=== PATIENT | female | born 1935 | race Caucasian/White ===

== ENCOUNTER → 2018-02-27 12:09 | Outpatient (CLI) | payer MEDICARE, OTHER, SELFPAY ==
--- NOTE | 2018-02-27 12:16 | RAD_ITS ---
STUDY: X-RAY - CERVICAL SPINE REASON FOR EXAM: Female, 82 years old. Neck pain. Fall. TECHNIQUE: 5 view(s) of the cervical spine were obtained. COMPARISON: None FINDINGS: Normal anterior atlantoaxial articulation. Normal odontoid process. There is reversal of the normal cervical lordosis. There is multi-level endplate spondylosis. There is multi-level degenerative disc disease with multilevel disc space narrowing. There is multi-level osseous foraminal stenosis. The soft tissue structures are unremarkable. RAD/Cerv Spine 4 or 5 Views IMPRESSION: No acute abnormality. Relatively severe multilevel degenerative changes. Electronically Signed: Oscar Redding MD at 19:02 EDT , Service support ,
== END ==
PROVIDERS: Family Provider Family Medicine; PCP Family Medicine; Visit Provider Family Medicine
DX: M54.2 Cervicalgia (principal)
CPT/HCPCS: 72050

== ENCOUNTER → 2018-03-08 14:01 | Outpatient (CLI) | payer MEDICARE, OTHER, SELFPAY ==
--- NOTE | 2018-03-08 14:04 | CT_ITS ---
CT Head or Brain W/O Contrast INDICATION: Closed head injury with concussion, fell on ice 11/2017, no LOC, c/o sharp posterior headaches. COMPARISON: None TECHNIQUE: Noncontrast axial CT examination of the brain. Radiation dose optimization applied. FINDINGS: The ventricular system is normal in size and symmetric. The cortical sulci, sylvian fissures, and basal cisterns are well seen. The wooten-white matter junction is distinct. There is no evidence of acute intracranial hemorrhage, mass effect, midline shift, or abnormal extra-axial collection. The calvarium is intact and the visualized paranasal sinuses and mastoid air cells are clear. CT/Brain/Head without Contrast IMPRESSION: No evidence of acute intracranial abnormality by noncontrast CT. at 2243 Reported and signed by: Mar Dsouza MD Electronically Signed: Mar Dsouza MD at 22:41 EDT Tel , Service support ,
== END ==
PROVIDERS: Family Provider Family Medicine; PCP Family Medicine; Visit Provider Family Medicine
DX: S06.0X9A Concussion with loss of consciousness of unspecified duration, initial encounter (principal)
CPT/HCPCS: 70450

== ENCOUNTER → 2018-04-23 14:25 | Outpatient (CLI) | payer MEDICARE, OTHER, SELFPAY ==
--- NOTE | 2018-04-23 14:25 | DT_ITS ---
This patient was seen during an EMR downtime April 23, 2018 - April 30, 2018. This patient may have a combination of paper and electronic documentation or all paper documentation. All documentation is viewable within the e-chart portion of [facility] for each patient visit.
[2018-04-29 03:28] LABS: AST(SGOT) 26 U/L (15-37); Alanine Aminotransfer ALT/SGPT 35 U/L (13-56); Anion Gap 8 (5-15); BUN 21 mg/dL (7-18); BUN/Creat Ratio 22.3 RATIO (10-20); Calcium,Total 10.3 mg/dL (8.5-10.1); Chloride 106 mmol/L (98-107); Cholesterol 170 mg/dL (200); Creatinine, Serum 0.94 mg/dL (0.55-1.02); EST Glomerular Filtration Rate 61 mL/min (>60); Est Glom Filt Rate - Afr Amer 74 mL/min (>60); Glucose 91 mg/dL (74-106); High Density Lipoprotein 58 mg/dL; Potassium 3.6 mmol/L (3.5-5.1); Sodium Level 143 mmol/L (136-145); Triglycerides 191 mg/dL; Very Low Density Lipoprotein 38 mg/dL (5-40)
== END ==
PROVIDERS: Family Provider Family Medicine; PCP Family Medicine; Visit Provider Family Medicine
DX: I10 Essential (primary) hypertension (principal); E78.5 Hyperlipidemia, unspecified
CPT/HCPCS: 36415; 80048; 80061; 84450; 84460

== ENCOUNTER → 2018-10-22 11:04 | Outpatient (CLI) | payer MEDICARE, OTHER, SELFPAY ==
[2017-04-08 16:09] VITALS: BMI 30.3
[2018-10-22 12:13] LABS: Absolute Lymphocyte Count 1.29 X10^3/ul (0.83-4.51); Absolute Neutrophil Count 2.2 X10^3/uL (2.0-7.7); Basophil# 0.02 X10^3/uL; Basophil% 0.5 % (0-1); Eosinophil# 0.16 X10^3/uL; Hematocrit 39.8 % (37-47); Hemoglobin 13.1 g/dl (12.0-15.0); Lymphocyte # 1.29 X10^3/ul (4.0); Lymphocyte % 31.9 % (19-41); Mean Corp Hgb Conc 32.9 g/gl (32-36); Mean Corpuscular Hgb 28.5 pg (27.0-32.0); Mean Corpuscular Volume 86.5 fL (81-99); Mean Platelet Vol. 10.9 fl (6.2-12.0); Monocyte# 0.33 X10^3/uL; Monocyte% 8.2 % (0-10); Neutrophil # 2.23 X10^3/uL (2.7-7.7); Neutrophil % 55.2 % (47-70); Platelet Count 175 K/mm3 (150-450); RBC Distribution Width CV 13.3 % (11.6-14.6); RBC Distribution Width SD 42.1 fl (35.1-43.9)
[2018-10-22 12:20] LABS: POSITIVE COUNT NO; POSITIVE DIFFERENTIAL NO; POSITIVE MORPHOLOGY NO
[2018-10-22 12:39] LABS: Vitamin B12 483 pg/mL (211-911)
[2018-10-22 13:18] LABS: ALB/GLOB Ratio 1.1 RATIO (0.9-2.4); AST(SGOT) 24 U/L (15-37); Alanine Aminotransfer ALT/SGPT 35 U/L (13-56); Albumin, Serum 3.9 g/dL (3.2-5.0); Alkaline Phosphatase 85 U/L (45-117); Anion Gap 8 (5-15); BUN 18 mg/dL (7-18); BUN/Creat Ratio 22.7 RATIO (10-20); Calcium,Total 10.1 mg/dL (8.5-10.1); Chloride 104 mmol/L (98-107); Cholesterol 178 mg/dL (200); Creatinine, Serum 0.79 mg/dL (0.55-1.02); EST Glomerular Filtration Rate 74 mL/min (>60); Est Glom Filt Rate - Afr Amer 89 mL/min (>60); Globulin 3.7 g/dL (2.2-4.2); Glucose 104 mg/dL (74-106); High Density Lipoprotein 57 mg/dL; Potassium 3.8 mmol/L (3.5-5.1); Protein, Total 7.6 g/dL (6.4-8.2); Sodium Level 139 mmol/L (136-145); Thyroid Stim Hormone (TSH) 2.96 uIU/mL (0.358-3.74); Triglycerides 140 mg/dL; Very Low Density Lipoprotein 28 mg/dL (5-40)
--- OUTSIDE RECORDS SUMMARY | 2018-12-15 16:47 | XMS RPT_ITS ---
:1935 Author Organization OH[facility] Care Team Providers Name Role Phone Angelita Roman Attending Unavailable Jolliff, Angelita Primary Care Unavailable Jolliff, Angelita Attending Unavailable Jolliff, Angelita Referring Unavailable Jolliff, Angelita Primary Care Unavailable Jolliff, Angelita Attending Unavailable Jolliff, Angelita Primary Care Unavailable Jolliff, Angelita Attending Unavailable Jolliff, Angelita Primary Care Unavailable PROBLEMS PROBLEMS DATE TYPE CONDITION / CODE ATTENDING STATUS SOURCE 05/16/2018 Unknown I10 - Essential Angelita Roman Active [place] (primary) Community hypertension / Hospital I10(ICD-10) Repository 03/08/2018 Unknown S06.0X9A - Angelita Roman Active [place] Concussion with Community loss of Hospital consciousness of Repository unspecified duration, initial encounter / S06.0X9A(ICD-10) 02/27/2018 Unknown M54.2 - Cervicalgia Angelita Roman Active [place] / M54.2(ICD-10) [facility] Hospital Repository PROCEDURES PROCEDURES No Procedure Records FoundRESULTS RESULTS CBC W/DIFF, AUTOMATED Collected: 10/22/2018 Status: F Source: [place] 11:06 AM [facility] REPOSITORY TYPE CODE TESTS RESULT OUT OF RANGE REFERENCE UNITS LAB L100.1000 4.4-11.0 K/mm3 Low WBC 4.0 LAB L100.1200 4.2-5.4 M/mm3 Normal RBC 4.60 LAB L100.1300 12.0-15.0 g/dl Normal HGB 13.1 LAB L100.1400 37-47 % Normal HCT 39.8 LAB L100.1500 81-99 fL Normal MCV 86.5 LAB L100.1600 27.0-32.0 pg Normal MCH 28.5 LAB L100.1700 32-36 g/gl Normal MCHC 32.9 LAB L100.1810 11.6-14.6 % Normal RDW CV 13.3 LAB L100.1820 35.1-43.9 fl Normal RDW SD 42.1 LAB L100.1900 150-450 K/mm3 Normal PLT 175 LAB L100.2000 6.2-12.0 fl Normal MPV 10.9 LAB L100.2100 47-70 % Normal NEUT% 55.2 LAB L100.2200 19-41 % Normal LY% 31.9 LAB L100.2300 0-10 % Normal MONO% 8.2 LAB L100.2400 0-5 % Normal EO% 4.0 LAB L100.2500 0-1 % Normal BASO% 0.5 LAB L100.2550 0.0-0.9 % Normal IM GRAN % 0.200 Result Comment: IG% - Immature Granulocytes (promyelocytes, myelocytes and metamyelocytes) > 1% indicates that a LEFT SHIFT is Present. LAB L100.2620 2.0-7.7 X10 3/uL Normal Absolute Neut 2.2 LAB L100.2720 0.83-4.51 X10 3/ul Normal Absolute Lymph 1.29 Performed By: #### L100.0100 #### [facility] [address] [place], [place], [address] VITAMIN B12 Collected: 10/22/2018 Status: F Source: [place] 11:06 AM [facility] REPOSITORY TYPE CODE TESTS RESULT OUT OF RANGE REFERENCE UNITS LAB L503.0105 211-911 pg/mL Normal Vitamin B12 483 Performed By: #### L503.0105 #### [facility] [address] [place], [place], [address] COMPREHENSIVE METABOLIC Collected: 10/22/2018 Status: F Source: [place] MICHEL 11:06 AM [facility] REPOSITORY Order Comment: Is Patient Taking Vitamins or Folic Acid Supplements? N TYPE CODE TESTS RESULT OUT OF RANGE REFERENCE UNITS LAB L501.0100 74-106 mg/dL Normal GLU 104 Result Comment: Fasting Glucose result from 100 to 125 mg/dL suggests IMPAIRED HOMEOSTASIS per A.D.A. criteria. Please note revised GLUCOSE reference range effective 2017. LAB L501.1000 7-18 mg/dL Normal BUN 18 LAB L501.1100 0.55-1.02 mg/dL Normal CREAT,SERUM 0.79 Result Comment: The validity of the calculated GFR AND GFRAA in patients over 70 years has not been determined. Clinical correlation is essential. LAB L501.1110 >60 mL/min Normal EST GFR 74 Result Comment: Non- GFR Calc LAB L501.1115 >60 mL/min Normal EST GFR - AA 89 Result Comment: GFR Calc LAB L501.1300 10-20 RATIO High BUN/CRE 22.7 LAB L501.1500 6.4-8.2 g/dL T Normal PROT 7.6 LAB L501.1800 3.2-5.0 g/dL Normal ALB 3.9 LAB L501.1950 2.2-4.2 g/dL Normal GLOB 3.7 LAB L501.2000 0.9-2.4 RATIO Normal A/G 1.1 LAB L501.2200 8.5-10.1 mg/dL CA Normal 10.1 LAB L501.4100 15-37 U/L Normal AST 24 LAB L501.4305 45-117 U/L Normal ALK P 85 LAB L501.4405 13-56 U/L Normal ALT 35 LAB L501.4600 0.20-1.00 mg/dL T Normal BILI 0.90 LAB L501.5300 136-145 mmol/L NA Normal 139 LAB L501.5600 3.5-5.1 mmol/L K Normal 3.8 LAB L501.5900 98-107 mmol/L CL Normal 104 LAB L501.6100 21.0-32.0 mmol/L Normal CO2 27.0 LAB L501.6200 5-15 Normal GAP 8 Performed By: #### L500.4050, L500.4100, L501.9520, L506.0250 #### [facility] [address] [place], [address] LIPID PROFILE Collected: 10/22/2018 Status: F Source: [place] 11:06 AM [facility] REPOSITORY Order Comment: Is Patient Taking Vitamins or Folic Acid Supplements? N TYPE CODE TESTS RESULT OUT OF RANGE REFERENCE UNITS LAB L501.4900 200 mg/dL Normal CHOL 178 Result Comment: <200 mg/dL Desirable 200-240 mg/dL Borderline >240 mg/dL High Risk LAB L501.5000 mg/dL Normal TRIG 140 Result Comment: The drugs N-Acetylcysteine and Metamizole may falsely depress this assay. Serum Triglycerides Reference Interval Normal <150 mg/dL Borderline high 150 - 199 mg/dL High 200 - 499 mg/dL Very High > or = 500 mg/dL LAB L501.6400 mg/dL Normal HDL 57 Result Comment: The drugs N-Acetylcysteine and Metamizole may falsely depress this assay. Reference Range HDL <40 mg/dL Low HDL Cholesterol HDL >or= 60 mg/dL High HDL Cholesterol LAB L501.6500 0-130 mg/dL Normal LDL 93 LAB L501.6600 5-40 mg/dL Normal VLDL 28 Performed By: #### L500.4050, L500.4100, L501.9520, L506.0250 #### [facility] [address] [place], [address] THYROID STIM HORMONE Collected: 10/22/2018 Status: F Source: [place] (TSH) 11:06 AM [facility] REPOSITORY Order Comment: Is Patient Taking Vitamins or Folic Acid Supplements? N TYPE CODE TESTS RESULT OUT OF RANGE REFERENCE UNITS LAB L501.9520 0.358-3.74 uIU/mL Normal TSH 2.96 Performed By: #### L500.4050, L500.4100, L501.9520, L506.0250 #### [facility] [address] [place], [address] FOLATES, (FOLIC ACID) Collected: 10/22/2018 Status: F Source: [place] 11:06 AM [facility] REPOSITORY Order Comment: Is Patient Taking Vitamins or Folic Acid Supplements? N TYPE CODE TESTS RESULT OUT OF REFERENCE UNITS RANGE LAB L506.0250 3.1-55.4 ng/mL High FOLATES 61.60 Performed By: #### L500.4050, L500.4100, L501.9520, L506.0250 #### [facility] [address] [place], [address] DOWNTIME REPORT Observed: 05/10/2018 Status: F Source: [place] 1:35 PM [facility] REPOSITORY [facility] Medical Records Department [address] [place] [address] Downtime Report MR#: [id number] Acct: [id number] Name: CÉSAR PRESCOTT Rep #: [id number] : 1935 82 From: Anthony Khan PCP: Angelita Roman MD Status: REG CLI This patient was seen during an EMR downtime April 23, 2018 - April 30, 2018. This patient may have a combination of paper and electronic documentation or all paper documentation. All documentation is viewable within the e-chart portion of [employer] for each patient visit. BASIC METABOLIC Collected: 04/23/2018 Status: F Source: [place] PROFILE (BMP) 2:25 PM [facility] REPOSITORY Order Comment: RESULT(S) PREVIOUSLY REPORTED ON MANUAL REQUISITION DURING DOWNTIME. TYPE CODE TESTS RESULT OUT OF RANGE REFERENCE UNITS LAB L501.0100 74-106 mg/dL Normal GLU 91 Result Comment: Please note revised GLUCOSE reference range effective 2017. LAB L501.1000 7-18 mg/dL High BUN 21 LAB L501.1100 0.55-1.02 mg/dL Normal CREAT,SERUM 0.94 Result Comment: The validity of the calculated GFR AND GFRAA in patients over 70 years has not been determined. Clinical correlation is essential. LAB L501.1110 >60 mL/min Normal EST GFR 61 LAB L501.1115 >60 mL/min Normal EST GFR - AA 74 LAB L501.1300 10-20 RATIO High BUN/CRE 22.3 LAB L501.2200 8.5-10.1 mg/dL High CA 10.3 LAB L501.5300 136-145 mmol/L Normal NA 143 LAB L501.5600 3.5-5.1 mmol/L Normal K 3.6 LAB L501.5900 98-107 mmol/L Normal CL 106 LAB L501.6100 21.0-32.0 mmol/L Normal CO2 29.0 LAB L501.6200 5-15 Normal GAP 8 Performed By: #### L500.2500, L500.4100, L501.4100, L501.4405 #### [facility] [address] [place], [place], [address] LIPID PROFILE Collected: 04/23/2018 Status: F Source: [place] 2:25 PM [facility] REPOSITORY Order Comment: RESULT(S) PREVIOUSLY REPORTED ON MANUAL REQUISITION DURING DOWNTIME. TYPE CODE TESTS RESULT OUT OF RANGE REFERENCE UNITS LAB L501.4900 200 mg/dL Normal CHOL 170 Result Comment: <200 mg/dL Desirable 200-240 mg/dL Borderline >240 mg/dL High Risk LAB L501.5000 mg/dL Normal TRIG 191 Result Comment: The drugs N-Acetylcysteine and Metamizole may falsely depress this assay. Serum Triglycerides Reference Interval Normal <150 mg/dL Borderline high 150 - 199 mg/dL High 200 - 499 mg/dL Very High > or = 500 mg/dL LAB L501.6400 mg/dL Normal HDL 58 Result Comment: The drugs N-Acetylcysteine and Metamizole may falsely depress this assay. Reference Range HDL <40 mg/dL Low HDL Cholesterol HDL >or= 60 mg/dL High HDL Cholesterol LAB L501.6500 0-130 mg/dL Normal LDL 74 LAB L501.6600 5-40 mg/dL Normal VLDL 38 Performed By: #### L500.2500, L500.4100, L501.4100, L501.4405 #### [facility] [address] [place], [place], [address] AST(SGOT) Collected: 04/23/2018 Status: F Source: [place] 2:25 PM [facility] REPOSITORY Order Comment: RESULT(S) PREVIOUSLY REPORTED ON MANUAL REQUISITION DURING DOWNTIME. TYPE CODE TESTS RESULT OUT OF RANGE REFERENCE UNITS LAB L501.4100 15-37 U/L Normal AST 26 Performed By: #### L500.2500, L500.4100, L501.4100, L501.4405 #### [facility] [address] [place], [address] ALANINE AMINOTRANSFERAS Collected: 04/23/2018 Status: F Source: [place] (SGPT) 2:25 PM [facility] REPOSITORY Order Comment: RESULT(S) PREVIOUSLY REPORTED ON MANUAL REQUISITION DURING DOWNTIME. TYPE CODE TESTS RESULT OUT OF RANGE REFERENCE UNITS LAB L501.4405 13-56 U/L Normal ALT 35 Performed By: #### L500.2500, L500.4100, L501.4100, L501.4405 #### [facility] [address] [place], [address] BRAIN/HEAD WITHOUT Observed: 03/08/2018 Status: F Source: [place] CONTRAST 2:04 PM [facility] REPOSITORY [facility] Imaging Services [address] [place] [address] Brain/Head without Contrast MR#: [id number] Acct: [id number] Name: CÉSAR PRESCOTT Rep #: [id number] : 1935 F 82 From: Mar Dsouza MD PCP: Angelita Roman MD Status: REG CLI Study: Brain/Head without Contrast Date of Exam: 03/08/18 Exam# [id number] Ordering Dr: Angelita Roman MD CT Head or Brain W/O Contrast INDICATION: Closed head injury with concussion, fell on ice 11/2017, no LOC, c/o sharp posterior headaches. COMPARISON: None TECHNIQUE: Noncontrast axial CT examination of the brain. Radiation dose optimization applied. FINDINGS: The ventricular system is normal in size and symmetric. The cortical sulci, sylvian fissures, and basal cisterns are well seen. The wooten- white matter junction is distinct. There is no evidence of acute intracranial hemorrhage, mass effect, midline shift, or abnormal extra- axial collection. The calvarium is intact and the visualized paranasal sinuses and mastoid air cells are clear. CT/Brain/Head without Contrast IMPRESSION: No evidence of acute intracranial abnormality by noncontrast CT. at 2243 Reported and signed by: Mar Dsouza MD Electronically Signed: Mar Dsouza MD at 22:41 EDT Tel , Service support , CC: Angelita Roman MD Manager Consumer: Signed CERV SPINE 4 OR 5 Observed: 02/27/2018 Status: F Source: [place] VIEWS 12:16 PM [facility] REPOSITORY [facility] Imaging Services [address] [place] [address] Cerv Spine 4 or 5 Views MR#: [id number] Acct: [id number] Name: CÉSAR PRESCOTT Rep #: [id number] : 1935 F 82 From: Oscar Redding MD PCP: Angelita Roman MD Status: REG CLI Study: Cerv Spine 4 or 5 Views Date of Exam: 02/27/18 Exam# [id number] Ordering Dr: Angelita Roman MD STUDY: X-RAY - CERVICAL SPINE REASON FOR EXAM: Female, 82 years old. Neck pain. Fall. TECHNIQUE: 5 view(s) of the cervical spine were obtained. COMPARISON: None FINDINGS: Normal anterior atlantoaxial articulation. Normal odontoid process. There is reversal of the normal cervical lordosis. There is multi-level endplate spondylosis. There is multi-level degenerative disc disease with multilevel disc space narrowing. There is multi-level osseous foraminal stenosis. The soft tissue structures are unremarkable. RAD/Cerv Spine 4 or 5 Views IMPRESSION: No acute abnormality. Relatively severe multilevel degenerative changes. Electronically Signed: Oscar Redding MD at 19:02 EDT , Service support , CC: Angelita Roman MD Manager Consumer: Signed ALLERGIES ALLERGIES DATE TYPE / CODE NAME / CODE REACTION SEVERITY SOURCE 04/08/2017 Drug Sulfa Rash Unknown [place] [facility] Allergy/4160 (Sulfonamide Hospital [address](SNOMED Antibiotics)/ Repository CT) [id number](RX NORM) ENCOUNTERS ENCOUNTERS ADMIT/DISCHARGE ACCOUNT ADMITTING ENCOUNTER LOCATION SOURCE NUMBER CLASS 10/22/2018 [id number] Ambulatory [place] [facility] ing:MFPLAB Repository 04/23/2018 [id number] Ambulatory [place] [facility] ing:MFPLAB Repository 03/08/2018 [id number] Amb[place] [facility] ing:CT Repository 02/27/2018 [id number] [place] [address] [place] [address] ing:MTRAD Repository PAYERS PAYERS ENCOUNTER GUARANTOR PAYER SUBSCRIBER SOURCE 10/22/2018 César J Primary César J [place] [id number] Insurance:MEDICARE AlcornDOB: [facility] PART A BPolicy Number: [id number] [id number] Repository [address]Jpj: 330) Date:2018-10-22 [phone] () 10/22/2018 Secondary César J [place] Insurance:HUMANA AlcornDOB: [facility] [id number] Hospital Number: Repository [id number] Date:[id number] [address]CZ: 10/22/2018 Tertiary NOT GIVENUNK [place] Insurance:SELF PAY [facility] Number: Effective Repository Date:2018-10-22 04/23/2018 César J Primary César J [place] [id number] Insurance:MEDICARE AlcornDOB: [facility] PART A olicy Number: [id number], [place] [id number] Repository [address]Wkv: [phone]) Date:2018-04-23 [phone] () 04/23/2018 Secondary César J [place] Insurance:HUMANA AlcornDOB: [facility] [id number] Hospital Number: Repository [id number] Date:[id number] [address] [place] [id number]: 04/23/2018 Tertiary NOT GIVENUNK [place] Insurance:SELF PAY [facility] Effective Repository Date:2018-04-23 03/08/2018 César J Primary César J [place] [id number] Insurance:MEDICARE AlcornDOB: [facility] [place] PART A BPolicy Number: [id number], [place] [id number] Repository [address]Qej: (172) Date:2018-03-01 [phone] () 03/08/2018 Secondary César J [place] Insurance:HUMANA AlcornDOB: [facility] [id number] Hospital Number: Repository [id number] Date:[id number] [address] [address]IG: 03/08/2018 Tertiary NOT GIVENUNK [place] Insurance:SELF PAY [facility] Hospital Number: Effective Repository Date:2018-03-01 02/27/2018 César J Primary César J [place] [id number] Insurance:MEDICARE AlcornDOB: [facility] [place] PART A BPolicy Number: [id number], [place] [id number] Repository [address]Unf: ([phone]) Date:2018-02-27 [phone] () 02/27/2018 Secondary César J [place] Insurance:HUMANA AlcornDOB: [facility] [id number] Hospital Number: Repository [id number] Date:[id number] [address] [place] [id number]: 02/27/2018 Tertiary NOT GIVENUNK [place] Insurance:SELF PAY [facility] Hospital Number: Effective Repository Date:2018-02-27
== END ==
PROVIDERS: Family Provider Family Medicine; PCP Family Medicine; Visit Provider Family Medicine
DX: I10 Essential (primary) hypertension (principal); E78.5 Hyperlipidemia, unspecified; R20.2 Paresthesia of skin
CPT/HCPCS: 36415; 80053; 80061; 82607; 82746; 84443; 85025

== ENCOUNTER → 2019-03-28 12:27 | Outpatient (CLI) | payer MEDICARE, OTHER, SELFPAY ==
[2019-03-28 11:11] VITALS: BMI 31.6
--- NOTE | 2019-03-28 12:35 | RAD_ITS ---
STUDY: X-RAY CHEST REASON FOR EXAM: Female, 83 years old. Shortness of breath, dyspnea, abnormal EKG. TECHNIQUE: PA and lateral chest COMPARISON: None. FINDINGS: The lungs are clear and expanded. Normal cardiomediastinal silhouette, krystian and pleural margins. No acute osseous or upper abdominal process. Mild scoliosis. Osteopenia. RAD/Chest PA and Lateral IMPRESSION: No acute cardiopulmonary process. Electronically Signed: Jacob Valentine MD at 16:10 EDT Tel , Service support ,
== END ==
PROVIDERS: Family Provider Family Medicine; PCP Family Medicine; Referring Provider Internal Medicine Cardiovascular Disease; Visit Provider Internal Medicine Cardiovascular Disease
DX: R06.09 Other forms of dyspnea (principal); R94.31 Abnormal electrocardiogram [ECG] [EKG]
CPT/HCPCS: 71046

== ENCOUNTER → 2019-04-30 05:55 | Outpatient (CLI) | payer MEDICARE, OTHER, SELFPAY ==
[2019-03-28 11:11] VITALS: BMI 31.6
--- NOTE | 2019-04-30 06:10 | ECHOD_ITS ---
Reason For Study: DYSPNEA/SOB Procedure This was a 2D Doppler, Color Flow transthoracic echocardiogram. The study was technically difficult. Exam performed in department. Left Ventricle Normal LV size. Left ventricular systolic function is normal. The estimated ejection fraction is 65 %. No evidence for diastolic dysfunction. No regional wall motion abnormalities noted. Right Ventricle Normal RV size. Normal systolic function. Atria Normal left atrium. Normal right atrium. No doppler evidence for ASD. Mitral Valve There is no mitral annular calcification. Normal mitral valve. Trivial mitral valve insufficiency. Tricuspid Valve Normal tricuspid valve. Mild eccentric tricuspid valve insufficiency. Right ventricular systolic pressure estimated to be 23 mmHg. Aortic Valve Trisinus/trileaflet aortic valve. Mild diffuse aortic valve thickening. Mild focal aortic valve calcification. Aortic sclerosis, no stenosis. Pulmonic Valve The pulmonic valve is not well visualized. Trivial pulmonic valve insufficiency. Great Vessels Normal sized aortic root. Pericardium/Pleural No pericardial effusion. MMode/2D Measurements & Calculations LVIDd: 4.8 cm IVSd: 0.96 cm LVOT diam: 2.0 cm LVIDs: 2.8 cm LVPWd: 0.95 cm LVOT area: 3.0 cm2 RVDd: 3.2 cm FS: 41.5 % Ao root diam: 3.2 cm LAV(MOD-bp): 49.2 ml Aortic Valve Planimetry: 2.3 cm2 LAV(MOD-bp) Indexed: 27.5 ml/m2 LAV(MOD-sp2): 47.5 ml LAV(MOD-sp4): 47.7 ml LA dimension(2D): 3.4 cm LA A4 area: 17.2 cm2 RA A4 area: 14.7 cm2 Time Measurements MV dec time: 0.20 sec Doppler Measurements & Calculations MV E max sherwin: 81.8 cm/sec Lat Peak E' Sherwin: 7.3 cm/sec Med Peak E' Sherwin: 6.4 cm/sec MV A max sherwin: 95.9 cm/sec E/E' lat: 11.2 E/E' med: 12.8 MV E/A: 0.85 Ao V2 max: 138.8 cm/sec LV V1 max: 100.1 cm/sec SV(LVOT): 75.9 ml Ao max P.7 mmHg LV V1 max P.0 mmHg Ao V2 mean: 89.0 cm/sec LV V1 mean P.0 mmHg Ao mean P.6 mmHg LV V1 mean: 66.1 cm/sec Ao V2 VTI: 31.6 cm LV V1 VTI: 24.9 cm SUKHDEEP(I,D): 2.4 cm2 SUKHDEEP(V,D): 2.2 cm2 PA V2 max: 85.4 cm/sec PI end-d sherwin: 85.8 cm/sec TR max sherwin: 223.6 cm/sec TR max P.0 mmHg Interpretation Summary The study was technically difficult. Left ventricular systolic function is normal. The estimated ejection fraction is 65 %. Trivial mitral valve insufficiency. Mild eccentric tricuspid valve insufficiency. Aortic sclerosis, no stenosis. Trivial pulmonic valve insufficiency. Right ventricular systolic pressure estimated to be 23 mmHg. No evidence for diastolic dysfunction. Ordering Physician: Magdiel Maher Referring Physician: Angelita Roman Performed By: Maty Dos Santos RDCS, RVT
--- NOTE | 2019-04-30 09:26 | STRESSREP_ITS ---
Stress Test Report Date: 04-30-19 Procedure: Exercise tolerance test/imaging study Indications: Shortness of breath/dyspnea on exertion Consent: Per the patient Procedure: The patient exercised on a Cesar protocol for 6 minutes and 30 seconds completing Stage II and 30 seconds of Stage III achieving a peak heart rate of 133 bpm (97 % predicted maximal heart rate) with a peak blood pressure 152/76 mmHg and a peak MET capacity of 7 METs. The baseline ECG demonstrated on his bradycardia; right bundle branch block pattern; nonspecific ST/T wave abnormality. The peak exercise ECG demonstrated somatic/motion artifact with no obvious ECG changes and in the early recovery ECG demonstrated continued right bundle branch block pattern with nonspecific ST and T wave changes that appeared more prominent compared with baseline with respect to ST segment depression There were occasional PACs during exercise and recovery. The functional capacity was considered good. There was [no complaint of chest discomfort during exercise or recovery]. The examination was discontinued secondary to fatigue. Impression: 1. Technically adequate (percent predicted maximal heart rate greater than 85%) exercise tolerance test 2. Peak exercise ECG with somatic/motion artifact with no obvious ECG changes and in the early recovery ECG demonstrated continued right bundle branch pattern with nonspecific ST and T wave changes that appeared more prominent compared with baseline with respect to ST segment depression 3. There were occasional PACs during exercise and recovery 4. Nuclear images pending Myocardial perfusion imaging study: Technique: The patient was injected with 11.5 mCi of technetium 99m Cardiolite and subsequently rest SPECT Cardiolite nuclear imaging was obtained in the horizontal long, vertical long, and short axis views. The patient exercised on a Cesar protocol for 6 minutes and 30 seconds completing Stage II and 30 seconds of Stage III achieving a peak heart rate of 133 bpm (97 % predicted maximal heart rate) with a peak blood pressure 152/76 mmHg and a peak MET capacity of 7 METs. The patient was injected with 34.2 mCi of technetium 99m Cardiolite and subsequently stress SPECT Cardiolite nuclear imaging was obtained in the horizontal long, vertical long, and short axis views. A gated Cardiolite study at peak stress was obtained. Interpretation: Rest and stress SPECT Cardiolite nuclear imaging status post realignment, normalization, and attenuation correction, demonstrates [the appearance of relative uniform tracer uptake and myocardial perfusion appearing within normal limits]. [There is end systolic thickening and brightening]. The gated Cardiolite study demonstrates [myocardial thickening and inward wall motion]. The reported LVEF is 87 %. Impression: 1. Rest and stress SPECT Cardiolite nuclear imaging demonstrate [relative uniform tracer uptake and myocardial perfusion appearing within normal limits]. 2. The gated Cardiolite study reports an LVEF of 87 %. This note was generated with [employer] software. It may contain incorrect words, spelling, and punctuation that were not noted in checking the note before signing.
== END ==
PROVIDERS: Family Provider Family Medicine; PCP Family Medicine; Referring Provider Internal Medicine Cardiovascular Disease; Visit Provider Internal Medicine Cardiovascular Disease
DX: R06.09 Other forms of dyspnea (principal); R94.31 Abnormal electrocardiogram [ECG] [EKG]
CPT/HCPCS: 78452; 93017; 93306; A9500; A4216

== ENCOUNTER → 2019-05-10 14:01 | Outpatient (CLI) | payer MEDICARE, OTHER, SELFPAY ==
[2019-05-08 10:42] VITALS: BMI 31.4
[2019-05-10 16:25] LABS: Hematocrit 40.3 % (37-47); Hemoglobin 13.4 g/dl (12.0-15.0); Mean Corp Hgb Conc 33.3 g/gl (32-36); Mean Corpuscular Hgb 27.9 pg (27.0-32.0); Mean Corpuscular Volume 83.8 fL (81-99); Mean Platelet Vol. 11.4 fl (6.2-12.0); Platelet Count 188 K/mm3 (150-450); RBC Distribution Width SD 39.5 fl (35.1-43.9); Red Blood Count 4.81 M/mm3 (4.2-5.4); White Blood Count 5.2 K/mm3 (4.4-11.0)
[2019-05-10 16:29] LABS: Scan Indicated on CBC? Y/N NO
[2019-05-10 16:33] LABS: Prothrombin Time (Protime)PT. 13.4 SECONDS (11.7-14.9)
[2019-05-10 16:34] LABS: Partial Thromboplast Time 27.1 Seconds (24.1-36.2)
[2019-05-10 16:48] LABS: Anion Gap 5 (5-15); BUN 23 mg/dL (7-18); BUN/Creat Ratio 26.5 RATIO (10-20); Calcium,Total 10.3 mg/dL (8.5-10.1); Chloride 104 mmol/L (98-107); Creatinine, Serum 0.87 mg/dL (0.55-1.02); EST Glomerular Filtration Rate 66 mL/min (>60); Est Glom Filt Rate - Afr Amer 80 mL/min (>60); Glucose 101 mg/dL (74-106); Potassium 3.7 mmol/L (3.5-5.1); Sodium Level 137 mmol/L (136-145)
== END ==
PROVIDERS: Family Provider Family Medicine; PCP Family Medicine; Referring Provider Internal Medicine Cardiovascular Disease; Visit Provider Internal Medicine Cardiovascular Disease
DX: R94.39 Abnormal result of other cardiovascular function study (principal); R06.09 Other forms of dyspnea; I10 Essential (primary) hypertension
CPT/HCPCS: 36415; 80048; 85027; 85610; 85730

== ENCOUNTER 2019-05-14 07:55 | Day surgery (SDC) | payer MEDICARE, OTHER, SELFPAY ==
[2019-03-28 11:11] VITALS: BMI 31.6
[2019-05-08 10:42] VITALS: BMI 31.4
[2019-05-13 09:12] VITALS: BMI 31.6
[2019-05-14] VITALS (24 sets, daily range): BP systolic 94–138; BP diastolic 33–79; PULSE 51–63; RESP 14–21; TEMP 36.4–36.7; O2SAT 92–99; BMI 27.6
--- NOTE | 2019-05-14 07:42 | PCM.HP.BLA ---
Problem List (1) Dyspnea on exertion Status: Acute (2) Abnormal stress test Status: Acute (3) Mixed hyperlipidemia Status: Chronic (4) Essential hypertension Status: Chronic (5) Secondary pulmonary hypertension Status: Chronic History and Physical Date of Admission: 05/14/19 History of Present Illness Surgical H&P: Yes Details: This is a 83-year-old white female who presents today for outpatient cardiovascular follow up based on concerns of shortness of breath/dyspnea. As you recall, she has undergone previous evaluation in the past in [place], [place]. It appears, based upon some information obtained, that in March 2013 she underwent an exercise tolerance test/imaging study. According to a letter from her dipper operator at that time it was considered to have no significant findings or suggestion of significant blockages and thus she did not require further evaluation or care. However she states there were concerns at that time about her heartbeats and she was evaluated by electrophysiology. She states she wore a heart monitor. She did not require invasive evaluation. She was placed on medical therapy with her beta-anjum. It also appears in June 2017 she had a transthoracic echocardiogram performed at [facility]. At that time her left ventricle was considered normal with an LVEF of 60% with findings of mild TR. She had decreased diastolic compliance. She has been undergoing evaluation by her land surveyor assistant. She states he is not convinced her shortness of breath is pulmonary related. Thus he requested cardiac evaluation. She states she does get short of breath with exertional activity such as vacuuming the floor or going up an incline. She denies orthopnea or PND. She has had no significant peripheral pitting edema. There has been no associated chest discomfort other than the sensation she gets when she is short of breath and dyspneic. She has had no near syncope or syncope. She states she rarely notes her heart beats . She did have an ECG in the office today. She was noted to be in sinus bradycardia. She has an underlying right bundle branch block pattern. Since her original visit she has also undergone further evaluation with a transthoracic echocardiogram and an exercise tolerance test/imaging study. The results are as noted below. 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: No Accompanied by: Self Allergies Sulfa (Sulfonamide Antibiotics) Allergy (Verified 05/13/19 08:57) Rash Medications Atorvastatin Calcium [Lipitor] 20 mg PO QHS 04/08/17 [History Confirmed 05/13/19] Metoprolol(XL)Succ [Toprol Xl (Beta Anjum)] 25 mg PO DAILY 04/08/17 [History Confirmed 05/13/19] cholecalciferol (vitamin D3) 1,000 unit capsule 1,000 unit PO DAILY 03/22/19 [History Confirmed 05/13/19] clobetasol 0.05 % topical gel 1 applic TOPICAL BID PRN 03/22/19 [History Confirmed 05/13/19] coenzyme Q10 100 mg capsule 100 mg PO DAILY 03/22/19 [History Confirmed 05/13/19] lisinopril 20 mg-hydrochlorothiazide 25 mg tablet 0.5 tab PO DAILY tab 03/28/19 [History Confirmed 05/13/19] multivitamin tablet 1 tab PO DAILY 03/28/19 [History Confirmed 05/13/19] aspirin 81 mg tablet,delayed release 81 mg PO DAILY #1 tab 05/08/19 [Rx Confirmed 05/13/19] clopidogrel 75 mg tablet 75 mg PO DAILY #30 tab 05/08/19 [Rx Confirmed 05/13/19] [facility] Medical History Abnormal stress test (Acute) Dyspnea on exertion (Acute) Mixed hyperlipidemia (Chronic) Essential hypertension (Chronic) Secondary pulmonary hypertension (Chronic) RACHID (obstructive sleep apnea) (Chronic) Surgical History History of cataract surgery (Resolved) History of hip replacement (Resolved) History of knee replacement (Resolved) History of shoulder surgery (Resolved) Family History Father Heart disease Grandfather Heart disease Grandmother CVA (cerebral vascular accident) Social History (Updated 05/13/19 @ 11:24 by Magdiel Maher MD) Smoking Status: Never smoker alcohol intake: never substance use type: does not use caffeine: Yes Type: coffee Number of servings: 1 ROS Const Const: Negative for fatigue, weakness, frequent falls, excessive sweating, weight gain or weight loss Eyes Eyes: Negative for transient loss of vision, blurry vision or change in vision ENT ENT: Positive for balance problems (slight unsteadiness); negative for dizziness Cardio Chest Pain: No Palpitations: No Edema: Bilateral (slight intermittant) Muscle aches with walking: None Resp Respiratory: Positive for SOB with activity and SOB at rest (occasional) GI GI: Negative vomiting or vomiting blood/hematemesis : Negative for hematuria Musc Musc: Positive for muscle aches/ myalgia (bilat tingling from knee down and neuropathy to toes) and balance problems (slight unsteadiness); negative for muscle weakness or joint pain Skin Skin: Negative non-healing lesions or rash Neuro Neuro: Negative for dizziness, lightheadedness, orthostatic symptoms, frequent falls, weakness or blurry vision Charles Hematologic/Lymphatic: Negative for easy bleeding Endo Endo: Negative for fatigue or excessive sweating Psych Psych: Negative for anxiety or depression Allergy Allergy/Immunology: Negative for hives, Negative for rash Cardiology Exam Const Appearance: cooperative, healthy appearing, comfortable, no acute distress, well developed and well groomed Nutritional Appearance: overweight Orientation: alert, awake and oriented x3 Head Head: normal to inspection and normocephalic Ears: hearing grossly normal bilaterally Nose: external nose normal Face and Sinus: face symmetric Mouth: oral mucosae normal Teeth and gingiva: fair dentition Eyes Eyelids: eyelids normal Conjunctivae: conjunctivae normal Pupils: PERRL EOM: EOM intact bilaterally Neck Neck: normal visual inspection and full ROM Carotids: normal carotid upstroke Chest Chest inspection: normal inspection of the chest and symmetric chest movement Auscultation: Bilateral: Clear to Auscultation Cardio Palpation: normal PMI Rate: regular rate Rhythm: regular rhythm Heart sounds: S1 normal and S2 normal GI GI: normal to inspection, soft and bowel sounds present Neuro General: alert, awake, oriented x3, gait normal and moves all extremities Skin Skin: no rashes or lesions noted Extremities Pulses: Normal: Right Radial Pulse, Left Radial Pulse Lower Extremity Edema: None: Bilateral Psych Psychological: normal affect Assessment & Plan 1. Abnormal stress test R94.39 Plan At the present time she will continue medical management. This will include the addition of aspirin 81 mg p.o. daily and Plavix 75 mg p.o. daily. Based upon her concerns and her findings she will be asked to go undergo further definitive cardiovascular evaluation with diagnostic cardiac catheterization. The procedure and risks were discussed with her. She was agreeable to this approach. Orders Orders: 12 Lead EKG performed by [facility] 05/08/19 2. Dyspnea on exertion R06.09 Plan Again she does have dyspnea on exertion. The question is whether this is cardiovascular related or pulmonary related or combination of both barring other unknown diagnoses. Thus she will continue evaluation care as noted above. 3. Secondary pulmonary hypertension Plan She has a history of secondary pulmonary hypertension. Based upon her most recent transthoracic echocardiogram her estimated RV systolic pressure was within normal range. This can be further assessed as deemed appropriate. 4. Mixed hyperlipidemia E78.2 Plan She will continue risk factor evaluation care. 5. Essential hypertension I10 Plan She will continue anti-hypertensive therapy as deemed appropriate. Orders Orders: 12 Lead EKG performed by [facility] 05/08/19 Plan Detail Other Medications New: aspirin 81 mg PO DAILY 1 tab 0RF clopidogrel (Plavix) 75 mg PO DAILY 30 tabs 1RF Additional Comments The above was discussed with her. She was agreeable to this approach. Thank you for allowing me to participate in the care of your patient. Please don't hesitate to call if any issues arise. This note was generated using a voice recognition system and there may be incorrect words, spelling or punctuation that were not noted when reviewing the office note prior to saving. Follow Up 2 Months (as previously scheduled) Coding Level of Care Code Off vis,new,level 5 Diagnoses Abnormal stress test R94.39 Dyspnea on exertion R06.09 Secondary pulmonary hypertension Mixed hyperlipidemia E78.2 Essential hypertension I10 Coding Level of Care Code Off vis,new,level 5 Diagnoses Abnormal stress test R94.39 Dyspnea on exertion R06.09 Secondary pulmonary hypertension Mixed hyperlipidemia E78.2 Essential hypertension I10 Supplemental Info Supplemental Information Transthoracic echocardiogram: 04-30-19 Interpretation Summary The study was technically difficult. Left ventricular systolic function is normal. The estimated ejection fraction is 65 %. Trivial mitral valve insufficiency. Mild eccentric tricuspid valve insufficiency. Aortic sclerosis, no stenosis. Trivial pulmonic valve insufficiency. Right ventricular systolic pressure estimated to be 23 mmHg. No evidence for diastolic dysfunction. Stress Test Report Date: 04-30-19 Procedure: Exercise tolerance test/imaging study Indications: Shortness of breath/dyspnea on exertion Consent: Per the patient Procedure: The patient exercised on a Cesar protocol for 6 minutes and 30 seconds completing Stage II and 30 seconds of Stage III achieving a peak heart rate of 133 bpm (97 % predicted maximal heart rate) with a peak blood pressure 152/76 mmHg and a peak MET capacity of 7 METs. The baseline ECG demonstrated on his bradycardia; right bundle branch block pattern; nonspecific ST/T wave abnormality. The peak exercise ECG demonstrated somatic/motion artifact with no obvious ECG changes and in the early recovery ECG demonstrated continued right bundle branch block pattern with nonspecific ST and T wave changes that appeared more prominent compared with baseline with respect to ST segment depression There were occasional PACs during exercise and recovery. The functional capacity was considered good. There was [no complaint of chest discomfort during exercise or recovery]. The examination was discontinued secondary to fatigue. Impression: 1. Technically adequate (percent predicted maximal heart rate greater than 85%) exercise tolerance test 2. Peak exercise ECG with somatic/motion artifact with no obvious ECG changes and in the early recovery ECG demonstrated continued right bundle branch pattern with nonspecific ST and T wave changes that appeared more prominent compared with baseline with respect to ST segment depression 3. There were occasional PACs during exercise and recovery 4. Nuclear images pending Myocardial perfusion imaging study: Technique: The patient was injected with 11.5 mCi of technetium 99m Cardiolite and subsequently rest SPECT Cardiolite nuclear imaging was obtained in the horizontal long, vertical long, and short axis views. The patient exercised on a Cesar protocol for 6 minutes and 30 seconds completing Stage II and 30 seconds of Stage III achieving a peak heart rate of 133 bpm (97 % predicted maximal heart rate) with a peak blood pressure 152/76 mmHg and a peak MET capacity of 7 METs. The patient was injected with 34.2 mCi of technetium 99m Cardiolite and subsequently stress SPECT Cardiolite nuclear imaging was obtained in the horizontal long, vertical long, and short axis views. A gated Cardiolite study at peak stress was obtained. Interpretation: Rest and stress SPECT Cardiolite nuclear imaging status post realignment, normalization, and attenuation correction, demonstrates [the appearance of relative uniform tracer uptake and myocardial perfusion appearing within normal limits]. [There is end systolic thickening and brightening]. The gated Cardiolite study demonstrates [myocardial thickening and inward wall motion]. The reported LVEF is 87 %. Impression: 1. Rest and stress SPECT Cardiolite nuclear imaging demonstrate [relative uniform tracer uptake and myocardial perfusion appearing within normal limits]. 2. The gated Cardiolite study reports an LVEF of 87 %. Labs LDL Cholesterol 93 mg/dL (0-130) 10/22/18 HDL Cholesterol 57 mg/dL (40-) 10/22/18 Triglycerides 140 mg/dL (-199) 10/22/18 VLDL Cholesterol 28 mg/dL (5-40) 10/22/18 Diagnostics Electrocardiogram 05/08/19 Echocardiogram 04/30/19 Stress Test Nuclear Medicine 04/30/19 Stress Test 04/30/19 Chest X-Ray 03/28/19 05/13/19 [id number]<Electronically signed by Magdiel Maher MD> Date Magdiel Maher MD I have re-examined the patient. There are no clinical changes since date of exam.
--- NOTE | 2019-05-14 11:00 | EKG12_ITS ---
Test Reason : AM EKG Blood Pressure : / mmHG Vent. Rate : 050 BPM Atrial Rate : 050 BPM P-R Int : 212 ms QRS Dur : 136 ms QT Int : 500 ms P-R-T Axes : 067 065 012 degrees QTc Int : 455 ms Sinus bradycardia with 1st degree A-V block Right bundle branch block Abnormal ECG When compared with ECG of 14-MAY-2019 11:01, MANUAL COMPARISON REQUIRED, DATA IS UNCONFIRMED Confirmed by JUMANA INTERIANO ([id number]), deputy editor in chief JOANNE BENTON ([id number]) on 05/15/2019 2:15:04 PM Referred By: Magdiel Maher Confirmed By:JUMANA INTERIANO
[2019-05-14] MEDS: 0.9% Normal Saline 1,000 ML 100 ML IV (11:20)
--- NOTE | 2019-05-14 12:47 | CRPHASE1 ---
Patient Communication PHII Cardiac Rehab Discussed with Patient:: Yes Guide to Cardiac Rehab Given to Patient:: Yes Cardiac Rehab Facility Choice List Given to Patient:: Yes Choice Program [facility] [place] PHII:: Communication Given to CR, Refer to [facility] Patent Litigation Associate:: Troy Castañeda Phase II Cardiac Rehab:: Yes Sessions:: 36 sessions - 3 days/wk, 12 weeks Risk Factors/Lifestyle Smoking Status: Never smoker Hx Hypertension: Yes Hx Diabetes Mellitus Type 1: No Hx Diabetes Mellitus Type 2: No Hx Metabolic Disorders: No Hx Dyslipidemia: Yes Hx Obesity: No Height: 5 ft 7 in - bmi 27.7 Post-Menopausal: Yes Stress: Home/Family Risk Factor for Sedentary Lifestyle: Moderate Risk Family History: Family History (Last Reviewed 05/08/19 @ 10:43 by Carri Regan) Father Heart disease Grandfather Heart disease Grandmother CVA (cerebral vascular accident) Phase I Education Given On:: [place], Nutrition, Antiplatelet medication Issues Affecting Care:: None Knowledge of Condition:: Yes Learning Preferences: Verbal, Written - FAMILY AT BEDSIDE Hospital Course Presenting Symptoms:: DYSPNEA WITH EXERTION/ ABNORMAL STRESS Medical/Surgical History ME:: No CAD:: No RACHID:: Yes Diabetes:: No Hypertension:: Yes Dyslipidemia:: Yes Discharge/Home/Social Eval Discharge Disposition: Home Cardiac Rehabilitation Info Cardiac Rehabilitation Program Information: Cardiac Rehabilitation is important for patients like you who are recovering from a heart problem. Cardiac rehabilitation programs are recognized as integral to the continued care of the patient with coronary heart disease. The cardiac rehabilitation program is designed to optimize a patient's physical, psychological, and social functioning. Health care attendant work in cardiac rehabilitation programs and assist you with getting the treatments you need to get stronger and healthier - like exercise, healthy eating habits, and medications. Cardiac rehabilitation has been show to help people with heart problems live longer and have better life enjoyment than people who do not go to cardiac rehabilitation. Please contact the Cardiac Rehabilitation Program at [facility] at in two weeks if you have not heard from them.
--- NOTE | 2019-05-14 12:49 | CRPH1.INSTRU ---
General Education CAD and cardiac anatomy and function:: Patient communicates acknowledgment - FAMILY AT BEDSIDE, Family communicates acknowledgment Explanation of diagnoses and procedures:: Patient communicates acknowledgment, Family communicates acknowledgment Sign/Symptoms of AR:: Patient communicates acknowledgment, Family communicates acknowledgment Antiplatelet therapy: Patient communicates acknowledgment, Family communicates acknowledgment Proper use of NTG-SL: Not instructed Emergency procedures and activation of EMS: Patient communicates acknowledgment, Family communicates acknowledgment Compliance of all prescribed medications: Patient communicates acknowledgment, Family communicates acknowledgment Smoking Patient Nicotine/Smoking Risk Factors Are:: Never smoked Dyslipidemia Patient Dyslipidemia Risk Factors Are:: Total Cholesterol, Triglycerides, HDL, LDL Recommendations Include:: Lipid profile provided, Reviewed NCEP/ATP guidelines, Therapeutic Lifestyle Change dietary guidelines Dyslipidemia Response Code:: Patient communicates acknowledgment, Family communicates acknowledgment Overweight/Obesity Patient Overweight/Obesity Risk Factors Are:: BMI Normal [24-29 & > 65 years old] Hypertension Recommendations Include:: Maintain BP <130/85, DASH dietary guidelines, Decrease/maintain normal body weight, Moderation of ETOH Hypertension:: Patient communicates acknowledgment, Family communicates acknowledgment Heart Disease Heart Disease Response Code:: Patient communicates acknowledgment, Family communicates acknowledgment Diabetes Patient Diabetes Risk Factors Are:: No documented hx of diabetes Metabolic Syndrome Recommendations Include:: Does not meet criteria Sedentary Patient Sedentary Risk Factors Are:: Lack of regular exercise Recommendations Include:: Aerobic exercise 5-7 times/week for 20-30 minutes continuously, Benefits of regular exercise, Discussed home walking program, Monitored Outpatient Cardiac Rehab Sedentary Response Code:: Patient communicates acknowledgment, Family communicates acknowledgment Stress Recommendations Include:: Identification of stressors, and assessment of coping skills, Stress management techniques Stress Response Code:: Patient communicates acknowledgment, Family communicates acknowledgment
--- NOTE | 2019-05-14 18:07 | CL.I_ITS ---
Patient Name: CÉSAR PRESCOTT Study Date: 05/14/2019 Performing: Azra Castañeda MD Ht: 62 inches 157 cm : 1935 Wt: 172.2 lbs 78 kg Age: 83 Gender: female BSA: 1.79 PROCEDURE(S) PERFORMED [id number] W OR WO PTCA, SINGLE CORONARY ARTERY [id number], EACH ADD'L CORONARY ART, SAME MAJOR CLINICAL PROFILE AND CO-MORBIDITIES Indications: Suspected CAD Heart Failure: None Stress/Imaging Date: 04/30/2019 Stress Test with SPECT MPI: Indeterminant: Abnormal ECG ETT / Neg ative Nuclear Images Angina Classification Anginal Classification w/in 2 Weeks: CCS III CAD Presentations: Stable angina. CONCLUSIONS Successful PCI of LAD/D1 bifurcation with LEMUEL to LAD and PTCA alone of the D1 RECOMMENDATIONS Follow up with Dr. Maher Risk factor modification ASA Indefinijeffry Avila for at least 12 months DESCRIPTION OF PROCEDURE The patient arrived to the procedure lab. The risks and benefits of the procedure as well as a full d escription of our services here and current unavailability of surgical backup were fully explained to the patient and/or their significant other prior to the catheterization. The Timeout was completed, verifying the correct patient and procedure. The patient's procedural site was prepped and draped in the usual fashion. Local anesthetic was given subcutaneously to right radial region with Lidocaine 2% Using a modified Seldinger technique,arterial access was obtained via the right radial artery, a 6Fr sheath was inserted. Right Coronary Artery selective angiography was then performed in multiple view s using a 5 Fr. 4.0 [place] catheter. Left Coronary Artery selective angiography was performed in multi ple views using a 5 Fr. 4.0 [place] catheter. Left Coronary Artery selective angiography was performed in multiple views using a 5 Fr. JL 5 catheter.The images were reviewed and options discussed. A decision was then made to proceed with an Intervention, IVUS or other adjunct procedure. XB 3.5 Guide catheter was inserted and engaged into the LCA. BMW Guide wire was advanced to the L AD. Runthrough Guide wire was inserted as a flynn wire Emerge 3.00x12 on BMW wire Balloon catheter wa s inserted. PTCA balloon inflated at 6 atms for 20 secs. Emerge 2.25x12 Balloon catheter was inserted . PTCA balloon inflated at 6 atms for 13 secs. PTCA balloon inflated at 6 atms for 6 secs. Angiogram performed post balloon dilatation. Elunir 3.0x12 Drug Eluting stent was inserted. Angiogram performed post stent deployment. The arterial sheath was pulled and a TR Band was applied for hemostasis w/ 12ml air INTERVENTION INFORMATION LESION SITE: LAD (Proximal) Lesion Complexity: High/C, chronic total occlusion: No, lesion at bifurcation: Yes, thrombus present: No, lesion length: 11 mm, culprit lesion: Yes, Previously treated lesion: No Pre Stenosis: 80 % Pre intervention KESHA flow: 3 PROCEDURE: Drug Eluting Stent with pre dilatation. Post Stenosis: 0 % Post intervention KESHA flow: 3 Lesion Devices: Toro .014 BMW [place] Straight 190cm Cordis 6 Fr XB3.5 100cm Guide Catheter Felipe Sci EMERGE MR 3.00x12 BALLOON Cardinal Elunir LEMUEL RX 3.0X12 LESION SITE: 1st Diagonal (Ostial) Lesion Complexity: High/C, chronic total occlusion: No, lesion at bifurcation: Yes, thrombus present: No, lesion length: 6 mm, culprit lesion: Yes, Previously treated lesion: No Pre Stenosis: 70 % Pre intervention KESHA flow: 3 PROCEDURE: Balloon Angioplasty Post Stenosis: 40 % Post intervention KESHA flow: 3 Lesion Devices: Terumo .014 Runthrough Extra Floppy 180cm straight Felipe Sci EMERGE MR 2.25x12 BALLOON COMPLICATIONS No Complications PROCEDURE MEDICATIONS Versed 1 mg IV Fentanyl 50 mcg IV Oxygen: 2 L/min via nasal cannula Heparin diluted in 23cc Heparinized saline. Patient given 10cc IA of this solution. 05/14/2019 09:42: 26 Heparin 5000 unit(s) IV 05/14/2019 10:18:49 Verapamil 2.5mg, Ntg 100mcgs, 2000 units of Heparin diluted in 23cc Heparinized saline. Patient give n 10cc IA of this solution. 05/14/2019 09:42:26 IV Bolus: .9 NaCl 500ml total 05/14/2019 09:37:21 SUMMARY OF HEMODYNAMIC DATA Time AIR REST ECG 08:15:48 AO 118/61 (84) SA 09:43:54 Signed By Azra Castañeda MD On 05/14/2019 6:06:33 PM Azra Castañeda MD
[2019-05-14] MEDS: Atorvastatin Calcium 20 MG Tablet PO (21:07)
--- NOTE | 2019-05-14 21:14 | PCM.PN.CARD ---
Subjectve: Patient is status post diagnostic cardiac catheterization and subsequent LAD PCI. She appears to be awake and alert at this time and in no acute distress. Objective: Vital Signs Temp Pulse Resp BP Pulse Ox 97.9 F 53 L 18 110/60 96 05/14/19 19:00 05/14/19 21:00 05/14/19 21:00 05/14/19 21:00 05/14/19 21:00 Oxygen Delivery Method Room Air Weight: 176 lb 12.972 oz Body Mass Index (BMI) 27.6 Intake and Output for Last 24 Hours 05/12/19 05/13/19 05/14/19 23:59 23:59 23:59 Intake Total 1274 / 1274 Balance 1274 / 1274 General: Awake, Alert, Oriented x 3, Cooperative, No Acute Distress HEENT: Atraumatic, Normocephalic, PERRL, EOMI, Sclera Non Icteric Oral: Moist Mucosa Neck: Supple, Good ROM, No JVD Lungs: Clear to auscultation Cardiovascular: Regular Rhythm, Normal S1, Normal S2 Vascular: Normal Radial Pulses Abdomen: Bowel Sounds Present, Soft, Non Tender Extremities: No edema Neurological: No Focal Motor or Sensory Deficit Psych/Mental Status: Appropriate Rhythm: Sinus rhythm EKG: Sinus rhythm; right bundle branch block pattern; nonspecific ST/T wave abnormality Cardiac catheterization: Please see official report PCI: Please see official report Medical Necessity - Tobacco Use Smoking Status: Never smoker Assessment/Plan 1. CAD status post LAD PCI At the present time the patient appears to be recuperating from her invasive procedures without any obvious adverse events. She will continue to be monitored. She will continue medical management with adjustment as deemed appropriate. She will need continued future outpatient cardiovascular follow-up and cardiac rehabilitation therapy. 2. Hyperlipidemia She will continue risk factor modification medical therapy. 3. Hypertension She will continue medical management with adjustment of her medications as needed. Comment: The above was discussed and reviewed with the patient. This note was generated with [employer] dictation software. It may contain incorrect words, spelling, and punctuation that were not noted in checking the note before signing.
[2019-05-15] VITALS (11 sets, daily range): BP systolic 91–115; BP diastolic 32–64; PULSE 47–70; RESP 11–20; TEMP 36.6; O2SAT 94–98
[2019-05-15 04:28] LABS: Hematocrit 34.4 % (37-47); Hemoglobin 11.5 g/dl (12.0-15.0)
[2019-05-15 04:37] LABS: Anion Gap 9 (5-15); BUN 15 mg/dL (7-18); BUN/Creat Ratio 18.2 RATIO (10-20); Calcium,Total 8.7 mg/dL (8.5-10.1); Chloride 109 mmol/L (98-107); Creatinine, Serum 0.83 mg/dL (0.55-1.02); EST Glomerular Filtration Rate 70 mL/min (>60); Est Glom Filt Rate - Afr Amer 85 mL/min (>60); Estimated Creatinine Clearance 49.94 ml/min; Glucose 103 mg/dL (74-106); Potassium 3.8 mmol/L (3.5-5.1); Sodium Level 145 mmol/L (136-145)
--- NOTE | 2019-05-15 05:55 | EKG12_ITS ---
Test Reason : Blood Pressure : / mmHG Vent. Rate : 056 BPM Atrial Rate : 056 BPM P-R Int : 208 ms QRS Dur : 142 ms QT Int : 504 ms P-R-T Axes : 074 076 018 degrees QTc Int : 486 ms Sinus bradycardia Right bundle branch block Abnormal ECG No previous ECGs available Confirmed by ROSHNI GARCIA, CHILO ([id number]), brands editor JOANNE BENTON ([id number]) on 05/28/2019 2:21:32 PM Referred By: Magdiel Maher Confirmed By:CHILO BARAKAT MD
--- NOTE | 2019-05-15 07:45 | PN.CARD_ITS ---
Subjectve: The patient is awake and alert. She denies any ongoing chest discomfort or difficulty breathing at this time. She has had no obvious post procedure related adverse event. Objective: Vital Signs Temp Pulse Resp BP Pulse Ox 97.9 F 70 20 H 95/64 94 05/14/19 19:00 05/15/19 06:00 05/15/19 06:00 05/15/19 06:00 05/15/19 06:00 Oxygen Delivery Method Room Air Weight: 177 lb 7.554 oz Body Mass Index (BMI) 27.6 Intake and Output for Last 24 Hours 05/13/19 05/14/19 05/15/19 23:59 23:59 23:59 Intake Total 1274 / 1785 601 / 601 Balance 1274 / 1785 601 / 601 General: Awake, Alert, Oriented x 3, Cooperative, No Acute Distress HEENT: Atraumatic, Normocephalic, PERRL, EOMI, Sclera Non Icteric Neck: Supple, Good ROM, No JVD Lungs: Clear to auscultation Cardiovascular: Regular Rhythm, Normal S1, Normal S2 Vascular: Normal Radial Pulses Abdomen: Bowel Sounds Present, Soft, Non Tender Extremities: No edema Neurological: No Focal Motor or Sensory Deficit Psych/Mental Status: Appropriate 05/15/19 04:00: Hgb 11.5 L, Hct 34.4 L 05/15/19 04:00: Sodium 145, Potassium 3.8, Chloride 109 H, Carbon Dioxide 27.0, Anion Gap 9, BUN 15, Creatinine 0.83, Est GFR (MDRD) Af Amer 85, Est GFR (MDRD) Non-Af 70, BUN/Creatinine Ratio 18.2, Glucose 103, Calcium 8.7 Rhythm: Sinus rhythm EKG: Sinus rhythm; first-degree AV block; right bundle branch block pattern; no acute ECG changes Medical Necessity - Tobacco Use Smoking Status: Never smoker Assessment/Plan 1. CAD status post LAD PCI At the present time the patient appears to be recuperating from her invasive procedures without any obvious adverse events. She will need continued outpatient cardiovascular follow-up. She will also need referral to outpatient cardiac rehabilitation. 2. Hyperlipidemia She will continue risk factor modification medical therapy. 3. Hypertension She will continue medical management with adjustment of her medications as needed. Comment: The above was discussed and reviewed with the patient. This note was generated with [employer] software. It may contain incorrect words, spelling, and punctuation that were not noted in checking the note before signing.
--- NOTE | 2019-05-15 07:51 | PCM.DC ---
- Discharge Diagnoses Current Active Problems: CAD status post LAD PCI You will use the following diet at home:: Cardiac Your food should be the consistency of: Regular Discharge Activity: May Not Drive - He not drive x48 hours, May Shower - A shower today, May Take a Tub Bath - A take a tub bath in 7 days May resume sexual activity in: 2 weeks Weight Bearing Status: - - Avoid heavy exertional activity x2 weeks Call your doctor if your incision/area has: Continuous Slow Oozing, Sudden Increased Bleeding, Increased Pain/ Swelling, Increased Redness, Foul Smelling Discharge Call your doctor if you observe: Shortness of breath, Dizziness, Swelling in the ankles, Chest pain Remove Dressing in (days):: 1 Cleanse incision/area with: Soap & Water Additional Instructions: [facility]: To arrange outpatient cardiovascular follow-up and outpatient cardiac rehabilitation Allergies/Adverse Reactions: Allergies Sulfa (Sulfonamide Antibiotics) Allergy (Verified 05/13/19 08:57) Rash Medications to take at Discharge Metoprolol(XL)Succ [Toprol Xl (Beta Anjum)] 25 mg PO DAILY 04/08/17 cholecalciferol (vitamin D3) 1,000 unit capsule 1,000 unit PO DAILY 03/22/19 clobetasol 0.05 % topical gel 1 applic TOPICAL BID PRN 03/22/19 coenzyme Q10 100 mg capsule 100 mg PO DAILY 03/22/19 multivitamin tablet 1 tab PO DAILY 03/28/19 aspirin 81 mg tablet,delayed release 81 mg PO DAILY #1 tab 05/08/19 clopidogrel 75 mg tablet 75 mg PO DAILY #30 tab 05/08/19 Atorvastatin Calcium [Lipitor] 40 mg PO QHS #30 tab 05/15/19 Lisinopril [Zestril] 10 mg PO DAILY tablet 05/15/19 hydroCHLOROthiazide [Hydrochlorothiazide] 12.5 mg PO DAILY capsule 05/15/19 The following prescriptions were given: Atorvastatin Calcium [Lipitor] 40 mg PO QHS #30 tab Transmission Status: Pending to [facility]/pharmacy #[id number] Primary Care Physician: Angelita Roman MD [Primary Care Provider] - Test Results: Test results from this visit will be discussed in further detail at your follow-up appointment, if applicable. Please Follow Up With: Magdiel Maher MD When: Office to arrange outpatient follow-up visit and outpatient cardiac rehabil Proposed Discharge Date: 05/15/19
--- NOTE | 2019-05-15 07:59 | DS.PCM_ITS ---
Discharge Date and Diagnosis Date of Admission: 05/14/19 Date of Discharge: 05/15/19 - Primary Discharge Diagnosis CAD status post LAD PCI - Secondary Discharge Diagnosis Chronic Problems (Last Reviewed 05/08/19 @ 10:43 by Carri Regan) Mixed hyperlipidemia (Chronic) Essential hypertension (Chronic) Secondary pulmonary hypertension (Chronic) RACHID (obstructive sleep apnea) (Chronic) Hospital Course and Treatment Procedures: Cardiac catheterization, - - Cardiac intervention Summary of Care Provided: The patient is a 83 year old white female who presented for evaluation of shortness of breath/dyspnea with associated chest discomfort and abnormal exercise tolerance test for further evaluation with diagnostic cardiac catheterization. Diagnostic cardiac catheterization was performed and the patient was found to have angiographically significant appearing LAD disease. The patient subsequently underwent LAD PCI. The patient was monitored overnight in the ICU without obvious postprocedure adverse event. On this day the patient was considered stable for release home for continued outpatient cardiovascular follow-up and outpatient cardiac rehabilitation. [] Subjective: The patient is awake and alert and in no acute distress. - Physical Exam General: Alert, Oriented x3, Cooperative, No apparent distress HEENT: Atraumatic, PERRLA, EOMI, Normocephalic Neck: Supple, No JVD Lungs: Clear to auscultation Cardiovascular: Regular rate, Normal S1, Normal S2 Abdomen: Bowel Sounds Present, Soft, Non Tender Extremities: No edema Neurological: Neuro grossly intact Psych/Mental Status: Normal Affect Comment: Right radial artery area: Pulse 2+/4+: No bruits: No hematoma Vital Signs Temp Pulse Resp BP Pulse Ox 97.9 F 70 20 H 95/64 94 05/14/19 19:00 05/15/19 06:00 05/15/19 06:00 05/15/19 06:00 05/15/19 06:00 Oxygen Delivery Method Room Air Weight: 177 lb 7.554 oz Body Mass Index (BMI) 27.6 Intake and Output for Last 24 Hours 05/13/19 05/14/19 05/15/19 23:59 23:59 23:59 Intake Total 1274 / 1785 601 / 601 Balance 1274 / 1785 601 / 601 Laboratory Tests Past 24 Hrs 05/15/19 05/15/19 04:00 04:00 Hgb 11.5 L Hct 34.4 L Sodium 145 Potassium 3.8 Chloride 109 H Carbon Dioxide 27.0 Anion Gap 9 BUN 15 Creatinine 0.83 Estim Creat Clear Calc 49.94 Est GFR (MDRD) Af Amer 85 Est GFR (MDRD) Non-Af 70 BUN/Creatinine Ratio 18.2 Glucose 103 Calcium 8.7 Discharge Activity: May Not Drive - He not drive x48 hours, May Shower - A shower today, May Take a Tub Bath - A take a tub bath in 7 days May resume sexual activity in: 2 weeks Weight Bearing Status: - - Avoid heavy exertional activity x2 weeks Call your doctor if your incision/area has: Continuous Slow Oozing, Sudden Increased Bleeding, Increased Pain/ Swelling, Increased Redness, Foul Smelling Discharge Call your doctor if you observe: Shortness of breath, Dizziness, Swelling in the ankles, Chest pain Remove Dressing in (days):: 1 Cleanse incision/area with: Soap & Water Home Medications: Medications to take at Discharge Metoprolol(XL)Succ [Toprol Xl (Beta Anjum)] 25 mg PO DAILY 04/08/17 cholecalciferol (vitamin D3) 1,000 unit capsule 1,000 unit PO DAILY 03/22/19 clobetasol 0.05 % topical gel 1 applic TOPICAL BID PRN 03/22/19 coenzyme Q10 100 mg capsule 100 mg PO DAILY 03/22/19 multivitamin tablet 1 tab PO DAILY 03/28/19 aspirin 81 mg tablet,delayed release 81 mg PO DAILY #1 tab 05/08/19 clopidogrel 75 mg tablet 75 mg PO DAILY #30 tab 05/08/19 Atorvastatin Calcium [Lipitor] 40 mg PO QHS #30 tab 05/15/19 Lisinopril [Zestril] 10 mg PO DAILY tab 05/15/19 hydroCHLOROthiazide [Hydrochlorothiazide] 12.5 mg PO DAILY cap 05/15/19 Following Prescrptions Were Given to Patient: Atorvastatin Calcium [Lipitor] 40 mg PO QHS #30 tab Transmission Status: Pending to [facility]/pharmacy #[id number] Primary Care Physician: Angelita Roman MD [Primary Care Provider] - Please Follow Up With: Magdiel Maher MD When: Office to arrange outpatient follow-up visit and outpatient cardiac rehabil Disposition: Home Minutes spent on discharge:: 45 Patient Condition:: Stable Medical Necessity - Tobacco Use Smoking Status: Never smoker Meaningful Use Info Meaningful Use Diagnoses (Choose all that apply): None applicable
[2019-05-15] MEDS: Aspirin E.C. 81 MG Tablet PO (08:05)
[2019-05-15] MEDS: Multivitamins,Therapeutic Tablet 1 TABLET PO (08:06)
[2019-05-15] MEDS: Clopidogrel Bisulfate 75 MG Tablet PO (08:07)
--- NOTE | 2019-05-15 09:30 | CL.D_ITS ---
Patient Name: CÉSAR PRESCOTT Study Date: 05/14/2019 Performing: Magdiel Maher MD Ht: 62 inches 157 cm : 1935 Wt: 172.2 lbs 78 kg Age: 83 Gender: female BSA: 1.79 PROCEDURE(S) PERFORMED [id number] W OR WO PTCA, SINGLE CORONARY ARTERY [id number], EACH ADD'L CORONARY ART, SAME MAJOR CLINICAL PROFILE AND INDICATIONS Indications: Suspected CAD Heart Failure: None Stress/Imaging Date: 04/30/2019Stress Test with SPECT MPI: Indeterminant: Abnormal ECG ETT / Nega tive Nuclear Images Angina Classification Anginal Classification w/in 2 Weeks: CCS III CAD Presentations: Stable angina. CONCLUSIONS Double vessel CAD of the LAD and DX1 RECOMMENDATIONS Risk factor modification Medical therapy Referred for immediate PCI DESCRIPTION OF PROCEDURE The patient arrived to the procedure lab. The risks and benefits of the procedure as well as a full d escription of our services here and current unavailability of surgical backup were fully explained to the patient and/or their significant other prior to the catheterization. The Timeout was completed, verifying the correct patient and procedure. The patient's procedural site was prepped and draped in the usual fashion. Local anesthetic was given subcutaneously to right radial region with Lidocaine 2% . Using a modified Seldinger technique, arterial access was obtained via the right radial artery, a 6 Fr sheath was inserted. Right Coronary Artery selective angiography was then performed in multiple v iews using a 5 Fr. 4.0 [place] catheter. Left Coronary Artery selective angiography was performed in mu ltiple views using a 5 Fr. 4.0 [place] catheter. Left Coronary Artery selective angiography was perform ed in multiple views using a 5 Fr. JL 5 catheter.The arterial sheath was pulled and a TR Band was applied for hemostasis w/ 12ml air CORONARY ANGIOGRAPHY DOMINANCE: Right Dominant LEFT HEART ASSESSMENT Left Ventricular Ejection Fraction: Not assessed LEFT MAIN: Angiographically normal LEFT ANTERIOR DESCENDING ARTERY: PROX LAD: Mild calcification, Eccentric: Hazy: 85 % Stenosis DIAGONAL 1: Proximal - Mild luminal irregularities CIRCUMFLEX ARTERY: Angiographically normal RIGHT CORONARY ARTERY: Angiographically normal COMPLICATIONS No Complications PROCEDURE MEDICATIONS Versed 1 mg IV Fentanyl 50 mcg IV Oxygen: 2 L/min via nasal cannula Heparin diluted in 23cc Heparinized saline. Patient given 10cc IA of this solution. 05/14/2019 09:42: 26 Heparin 5000 unit(s) IV 05/14/2019 10:18:49 Verapamil 2.5mg, Ntg 100mcgs, 2000 units of Heparin diluted in 23cc Heparinized saline. Patient give n 10cc IA of this solution. 05/14/2019 09:42:26 IV Bolus: .9 NaCl 500ml total 05/14/2019 09:37:21 SUMMARY OF HEMODYNAMIC DATA Time AIR REST ECG 08:15:48 AO 118/61 (84) SA 09:43:54 Signed By Magdiel Maher MD On 05/15/2019 9:29:21 AM Magdiel Maher MD
[2019-05-15] MEDS: Metoprolol(XL)Succ 25 MG Tablet PO (09:33)
== END 2019-05-15 10:12 | disposition home or self-care (01) ==
LOC: CLSP 07:56 → ICU 10:18
PROVIDERS: Family Provider Family Medicine; PCP Family Medicine; Referring Provider Internal Medicine Cardiovascular Disease; Visit Provider Internal Medicine Cardiovascular Disease
DX: I25.10 Atherosclerotic heart disease of native coronary artery without angina pectoris (principal); R06.02 Shortness of breath; R94.39 Abnormal result of other cardiovascular function study; Z79.02 Long term (current) use of antithrombotics/antiplatelets; Z79.82 Long term (current) use of aspirin; R06.09 Other forms of dyspnea; E78.2 Mixed hyperlipidemia; I27.29 Other secondary pulmonary hypertension; I10 Essential (primary) hypertension; I45.10 Unspecified right bundle-branch block; G47.33 Obstructive sleep apnea (adult) (pediatric)
CPT/HCPCS: 80048; 85014; 85018; 92921; 92928; 93005; 93454; 99152; 99153; J7030; J7040; Q9967; C1725; C1769; C1874; C1887; C1894; C9600; J1327

== ENCOUNTER → 2019-05-21 11:54 | Outpatient (CLI) | payer MEDICARE, OTHER, SELFPAY ==
[2019-05-14 11:10] VITALS: BMI 27.6
--- NOTE | 2019-05-21 12:13 | CR.HP_ITS ---
CR - History & Physical - General Arrival date:: 05/21/19 Arrival time:: 12:00 Date of Referral:: 05/15/19 Date of CR Evaluation:: 05/21/19 Referring Physician: Gunnar Primary Diagnosis: PCI w/stenting - History of Present Cardiac Event Onset Date: Enter Onset Date of cardiac illnesses in Comment field below PTCA or coronary stenting:: Yes - 05/14/2019 Type of Symptoms:: abnormal stress test Interventions with present event:: heart cath Were there any complications?: none - Medications Home Medications: Ambulatory Orders Medication Instructions Recorded Metoprolol(XL)Succ [Toprol Xl 25 mg PO DAILY 04/08/17 (Beta Anjum)] cholecalciferol (vitamin D3) 1,000 1,000 unit PO DAILY 03/22/19 unit capsule clobetasol 0.05 % topical gel 1 applic TOPICAL BID PRN 03/22/19 coenzyme Q10 100 mg capsule 100 mg PO DAILY 03/22/19 multivitamin tablet 1 tab PO DAILY 03/28/19 aspirin 81 mg tablet,delayed 81 mg PO DAILY #1 tab 05/08/19 release clopidogrel 75 mg tablet 75 mg PO DAILY #30 tab 05/08/19 Atorvastatin Calcium [Lipitor] 40 mg PO QHS #30 tab 05/15/19 lisinopril 10 mg tablet 10 mg PO DAILY #90 tab 05/20/19 - Allergies Allergies/Adverse Reactions: Allergies Sulfa (Sulfonamide Antibiotics) Allergy (Verified 05/13/19 08:57) Rash - Sleep Disorder Evaluation Hx of Sleep Apnea: Yes Do you snore loudly (louder than talking or can be heard through closed doors)?: Yes - patient has BiPAP machine at home she uses at . 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 Living Will: Yes Advance Directives Information Provided: No Advance Directives on File: No DNR Order?:: No - MOLST See MOLST form: No Past Medical History - Past Medical Illness Medical History: Past Medical History (Last Updated 05/17/19 @ 12:25 by Carri Regan) Atherosclerotic heart disease of [place] coronary artery without angina pectoris (Chronic) I25.10 Presence of stent in coronary artery (Chronic) Onset Date: ~05/14/19 Z95.5 PTCA/LEMUEL to LAD and PCI to D1 05/14/19 Abnormal stress test (Acute) R94.39 Dyspnea on exertion (Acute) R06.09 Mixed hyperlipidemia (Chronic) E78.2 Essential hypertension (Chronic) I10 Secondary pulmonary hypertension (Chronic) RACHID (obstructive sleep apnea) (Chronic) G47.33 - Past Surgical History Surgical History: Past Surgical History (Last Reviewed 05/08/19 @ 10:43 by Carri Regan) History of cataract surgery Z98.49 History of hip replacement Z96.649 History of knee replacement Z96.659 History of shoulder surgery Z98.890 - Family History Summary Family History: Family History (Last Reviewed 05/08/19 @ 10:43 by Carri Regan) Father Heart disease Grandfather Heart disease Grandmother CVA (cerebral vascular accident) Social History - Smoking History Smoking Status: Never smoker Hx Tobacco Use: No Hx Smoking Exposure: No - Alcohol Use Alcohol Usage: No - Substance Abuse Hx Substance Use: No - Occupation Occupation (List type of work in comments):: Retired - Hobbies, Recreation, Social Activities Hobbies: Other - no outside life right now, helping take care of daughter who is wheelchair bound Recreational Activities: I am able to engage in most, but not all activities, I am able to engage in a few activities Social Environment - Status Marital Status: - Current Living Arrangements Living Environment:: Alone - Children How many children do you have?: 2 Do any of your children live nearby?: Yes - son-in law , caring for daughter in her home for about 4-5 hours. - Safety Do you feel safe in your surroundings?: Yes - Assistance Do you need any assistance at home?: none Review of Systems - Review of Systems Hints: Right click = Denies ([place]). Left click = Reports ([place]) Review of Present Symptoms: Reports: Shortness of Breath with Exertion - more noticable when doing activities, and find that easily tire., Fatigue, Heart Arrhythmia/Irregularities - secondary pulmonary hypertension, Appetite - Normal, Appetite - Special Diet, Sleep - Normal. Denies: Shortness of Breath at Rest - has been some noticable changes in breathing, Dizziness/Lightheadedness, Sexual Changes - Pain Is Patient Pain Free?: Yes Pain Location: none Pain Level: 0/10 Risk Factor Assessment - Chief Complaint Chief Complaint: Patient is a 83 yr old female of Dr. Maher who presents to CR today following recent abnormal stress test which lead to PCI intervention and coronary stent placement. The patient stated she is emotionally drained since she also cares for her daughter who is wheelchair bound and she is taking care of her own home inaddition to her daughters. We briefly discussed Behavioral Health assistance and [facility] program. - Vital Signs Temperature: 98.6 F Respiratory Rate: 16 Pulse Ox: 95 Blood Pressure: 126/68 Nailbeds:: pink - Pulse Pulse Rate: 56 Pulse Rhythm: Regular - Hypertension Blood Pressure Sitting - Left Arm: 126/68 - Blood Cholesterol/Lipids Total Cholesterol (mg/dL) Goal = less than 200 mg/dL: 178 HDL Cholesterol (mg/dL) Goal = less than 40 mg/dL: 57 LDL Cholesterol (mg/dL) Goal = less than 70 mg/dL: 93 Triglycerides (mg/dL) Goal = less than 150 mg/dL: 140 - Obesity Height: 5 ft 2 in Weight:: 172 lb Weight in Pounds: 172.0 lbs Weight Source: Standing Scale Body Mass Index (BMI): 31.4 Nutritional Referral for Obesity: Yes - Physical Inactivity Physical Inactivity: Recreational activity - walking gardening yard work - Risk Stratification Risk Guidelines: Lowest Risk: Risk Factor for Smoking, Risk Factor for Diabetes, Risk Factor for Hypertension, Risk Factor for Sedentary Lifestyle, Risk Factor for Depression, Moderate Risk: Risk Factor for Dyslipidemia, Highest Risk: Risk Factor for Obesity - For Smoking Smoking Risk Guidelines: Smoking Low Risk: None or quit greater than 6 months ago. Smoking Moderate Risk: Smoker or quit 6 months or less ago. Smoking High Risk: Smoker - For Dyslipidemia Dyslipidemia Risk Guidelines: Low Risk: Moderate Risk: High Risk: 15-25% fat 25.1-29% fat >/= 30% fat. <7% sat fat 7-9% sat fat >9% sat fat. <150 mg chol 150-299 mg chol >/= 300 mg chol. LDL <100 LDL 100-129 LDL >/= 130. Chol/HDL ratio <5.0 Chol/HDL ratio 5.0-6.0 Chol/HDL ratio >6.0. Triglycerides <100 Triglycerides 100- 149 Triglycerides >/= 150 - For Diabetes Mellitus Diabetes Risk Guidelines: Diabetes Low Risk: HgA1c <6.5% and/or FBG <120. Diabetes Moderate Risk: HgA1c 6.6-7.9% and/or FBG 120-180. Diabetes High Risk: HgA1c >/= 8% and/or FBG >180 - For Obesity/Overweight Obesity/Overweight Risk Guidelines: Obesity Low Risk: BMI <25.0. Obesity Moderate Risk: BMI 25-29.9. Obesity High Risk: BMI >/= 30.0 - For Hypertension Hypertension Risk Guidelines: Hypertension Low Risk: Systolic <120 and Diastolic <80. Hypertension Moderate Risk: Systolic 120-139 and Diastolic 80-89. Hypertension High Risk: Systolic >/= 140 and Diastolic >/= 90 - For Sedentary Lifestyle Sedentary Lifestyle Risk Guidelines: Sedentary Lifestyle Low Risk: >/= 1,500 kcal/week. Sedentary Lifestyle Moderate Risk: 700-1,499 kcal/week. Sedentary Lifestyle High Risk: < 700 kcal/week - For Depression Depression Risk Guidelines: Depression Low Risk: Not clinically depressed. Depression Moderate Risk: Mildly depressed. Depression High Risk: Clinically depressed - Family History Family History: Family History (Last Reviewed 05/08/19 @ 10:43 by Carri Regan) Father Heart disease Grandfather Heart disease Grandmother CVA (cerebral vascular accident) Motivation - Motivation to Participate On a scale of 1 to 10, how prepared are you to commit to attending program?: 10 What do you see as barriers to successfully being able to complete the program?: time available What do you see as the benefits of succesfully completing the program? In other words, what do you hope to get out of participating in the program?: healthier life, eating better, getting stronger. Are there issues you are dealing with that will interfere with completing the program?: caring for daughter from 3:00 pm until 9:00 pm Do you have a spouse or signficant other, family or friends who will help support you to complete the program?: Yes
--- NOTE | 2019-05-21 12:18 | CR.ITP_ITS ---
General Information - General Information Admitting Diagnosis: pci w/stenting - Education/Goals Barriers to Learning: None Individual Counseling: Initial Assessment: Abnormal Cholesterol Levels, High Blood Pressure, Overweight/Obesity Cardiac Rehabilitation Goals: 1. Maintain the individual as the primary focus of care. 2. To improve the patient's quality of life. 3. Identification of cardiac risk factors and provide cardiac risk factor management. 4. Enhance the psychosocial status of the patient. 5. Reconditioning enough to allow the patient to resume customary activities. 6. Control symptoms of cardiac disease Scale for measuring improvement of personal goals: Enter appropriate number in Comments. 2 = Unchanged. 3 = Slightly Better. 4 = Moderate Improvement. 5 = Met my Goal Personal Goals: Initial Assessment: Improve management of stress and emotions, Improve energy level, Participate in home exercise program, Improve muscle strength and endurance, Improve diet and eating habits (eat healthier), Control risk factors (learn risk factor modification) Exercise - Initial Assessment - Visit Date of Eval: 05/21/19 Session #:: 0 - start on - Stages of Change Stages of Change:: Action - Physician Prescribed Exercise Modalities: Treadmill, Rower, Airdyne, NuStep, SciFit Frequency (days/week): 3x/week for 12 weeks [36 sessions] Duration (Minutes):: 30-45 Intensity: 60-80% age predicted maximum heart rate reserve METs - Progression: 0.5-1.0 MET, RPE 11-14 WEEK: 2.5 Target Heart Rate:: 90-116 - Hypertension Do any of the following apply?: Yes, Medication, Diet Resting Blood Pressure:: 126/68 - Intervention Home Exercise/Activity Goal:: Moderate Exercise 30 min/day x 5 days/wk - Education Goals:: Warm-up, RPE PENNY Scale, S/S, Safe Exercise, Self-Monitoring - Exercise Program Goals Exercise Program Goals: Aerobic Activity >30 min Nutrition - Initial Assessment - Program Goals Nutrition Program Goals: LDL <70. Total Cholesterol <200. HDL >45. Triglycerides <150. HgbA1C <7%. BMI <25 - Visit Date of Assessment:: 05/21/19 - Stages of Change Stages of Change:: Action - Lipids Total Cholesterol (mg/dL) Goal = less than 200 mg/dL: 178 HDL Cholesterol (mg/dL) Goal = less than 45 mg/dL: 57 LDL Cholesterol (mg/dL) Goal = less than 70 mg/dL: 93 Triglycerides (mg/dL) Goal = less than 150 mg/dL: 140 - Diabetes Diabetes:: No Insulin: No Non-Insulin Dependent?: No Do you monitor your blood sugar at home?: No - Weight Management Height: 5 ft 2 in Weight:: 172 lb Body Fat %:: 31.4 - Intervention Referral to dietitian:: Yes Referral to Diabetic Clinic:: No Will attend diet classes:: Yes - Education Gave educational materials for:: Healthy eating Tobacco - Initial Assessment - Program Goals Tobacco Program Goals: Complete smoking cessation. Attend education classes. Improve Knowledge Test score - Stage of Change Stages of Change:: Action - Learning Barriers Learning Barriers: Vision, Ready to Learn - Family Support Do you have family support?: Yes - Tobacco Use Tobacco Use: Non-smoker Do you use smokeless tobacco?: No - Intervention Smoking Cessation Referral:: No Individual Education/Counseling:: No Education Schedule Given:: Yes - Education Gave educational material for:: Coronary artery disease, Risk factors, Sexuality, Medical compliance, Cardiac A&P, Angina signs & symptoms Psychosocial - Initial Assess - Target Goals Target Goals: Assess presence or absence of depression. Using a valid screening tool, maximizes coping skills. Positive support system - Stages of Change Stages of Change:: Action - Psychosocial Test Tool Used:: HANDS Depression Questionnaire - Intervention PS - Interventions: Yes Attend Stress Management Classes, No Referral to Mental Health, No Referral to [facility] Case Management, No Referral to Physician, No Uses Stress Management Skills - Education Gave educational materials for:: Coping techniques, Signs & symptoms of depression, Stress management, Relaxation techniques - Patient/Program Goal Preventative Medication(s):: Aspirin, Clopidogrel, Beta poppy, Statin/lipid - Assistive Devices Assistive Devices:: None Fall Risk Assessed:: Yes Patient Health Questionnaire Initial Assessment 1. Little interest or pleasure in doing things: Not at all 2. Feeling down, depressed, or hopeless: Not at all 3. Trouble falling or staying asleep, or sleeping too much: Several days 4. Feeling tired or having little energy: Nearly every day 5. Poor appetite or overeating: Nearly every day 6. Feeling bad about yourself -- or that you are a failure or have let yourself or your family down: Not at all 7. Trouble concentrating on things, such as reading the newspaper or watching television: Not at all 8. Moving or speaking so slowly that other people could have noticed. Or the opposite - being so fidgety or restless that you have been moving around a lot more than usual: Not at all 9. Thoughts that you would be better off , or of hurting yourself in some way: Not at all How difficult have these problems made it for you to do your work, take care of things at home, or get along with other people?: Somewhat difficult Total Score: 7 SHARLENE-Q SV Test - Statements CAD is a disease of the arteries in the heart: True Examples of risk factors for heart disease: True Angina is chest pain or discomfort: True The benefits of resistance training include: True Eating more meat and dairy products: False Anti-platelet medications such as aspirin are important: True The only effective way to manage stress: False An exercise warm-up slowly increases heart rate: I Don't Know Prepared, processed foods usually have high sodium: True Depression is common after a heart attack: I Don't Know The statin medications lower cholesterol: True To control blood pressure, lower the amount of sodium: True If someone gets chest discomfort during walking: False Transfats are partially hydrogenated vegetable oils: True Sleep apnea that is not treated increases the risk: False To control cholesterol, one should become a vegetarian: True Someone knows if he/she is exercising at the right level: False Diabetes cannot be prevented with exercise & health eating: I Don't Know Stress is a large risk for heart attack: True A diet that can help lower blood pressure is rich in: True - Total Score Total Correct Responses: 14 Self-Efficacy Initial Assessment We would like to know how confident you are in doing certain activities. Please select your confidence level for:: Select your confidence level for the following using the scale 1-10 where 1 is not at all confident and 10 is totally confident. Your score is the average of all 6 responses. Fatigue: How confident are you that you can keep the fatigue caused by your disease from interfering with the things you want to do? Select Number: 1 Physical Discomfort or Pain: How confident are you that you can keep the physical discomfort or pain of your disease from interfering with the things you want to do? Select Number: 1 Emotional Distress: How confident are you that you can keep the emotional distress caused by your disease from interfering with the things you want to do? Select Number: 6 Other Symptoms or Health Problems: How confident are you that you can keep other symptoms or health problems from interfering with the things you want to do? Select Number: 1 Different Tasks and Activities: How confident are you that you can do the different tasks and activities needed to manage your health condition so as to reduce your need to see a doctor? Select Number: 6 Medication: How confident are you that you can do things other than just taking medication to reduce how much your illness affects your everyday life? Select Number: 8 Total Score:: 3 Nutrition Survey - Nutrition Survey Instructions Scoring Instructions: Scoring is as follows: Yes = 1 points. No = 0 point. Patient score that is >/=12 is considered to be at potential nutritional risk and could benefit from a referral to a registered dietitian. - Nutrition Survey Initial Have you lost >10 lbs over the past 2 months without trying?: No Are you following a special diet at home for diabetes, low fat, or low salt?: No Are you interested in meeting with a dietitian for help understanding your diet?: Yes Do you eat less than 3 meals a day?: Yes Do you eat fatty meats (akers, sausage, ribs, etc), fried foods, desserts, large amounts of salad dressings, margarine, butter, or cheese most days?: Yes Do you have food allergies? [Enter types in comment field]: No Do you eat in restaurants more than 3 times a week?: No Do you season food with salt, seasoning salt, or garlic salt?: Yes Do you used canned, boxed, frozen meals, or soups, seasoning packets?: Yes Total Score:: 5
[2019-05-21 12:49] VITALS: BP 126/68; PULSE 56; RESP 16; TEMP 37; O2SAT 95; BMI 31.4
[2019-05-21 13:45] VITALS: BP 126/68
== END ==
PROVIDERS: Family Provider Family Medicine; PCP Family Medicine; Referring Provider Internal Medicine Cardiovascular Disease; Visit Provider Internal Medicine Cardiovascular Disease
DX: G47.33 Obstructive sleep apnea (adult) (pediatric) (principal); I10 Essential (primary) hypertension; E78.2 Mixed hyperlipidemia; Z95.5 Presence of coronary angioplasty implant and graft

== ENCOUNTER 2019-06-19 11:30 | Outpatient (RCR) | payer MEDICARE, OTHER, SELFPAY ==
[2019-05-21 12:49] VITALS: BMI 31.4
== END 2019-06-19 23:59 ==
LOC: CR 11:30
PROVIDERS: Family Provider Family Medicine; PCP Family Medicine; Referring Provider Internal Medicine Cardiovascular Disease; Visit Provider Internal Medicine Cardiovascular Disease
DX: Z98.61 Coronary angioplasty status (principal)
CPT/HCPCS: 93798

== ENCOUNTER 2019-07-19 11:30 | Outpatient (RCR) | payer MEDICARE, OTHER, SELFPAY ==
[2019-05-31 11:18] VITALS: BMI 31.2
--- NOTE | 2019-06-21 08:58 | PCM.CR.ITP ---
Exercise - 30-day Assessment - Visit Date of Eval: 06/21/19 Session #:: 12 - Stages of Change Stages of Change:: Action - Physician Prescribed Exercise Modalities: Treadmill, Biodyne, NuStep Frequency (days/week): 3 Duration (Minutes):: 30-45 Intensity: 60-80% age predicted maximum heart rate reserve METs - Progression: 0.5-1.0 MET, RPE 11-14 WEEK: 4.0 Target Heart Rate:: 90-116 w/ max HR of 103 - Hypertension Resting Blood Pressure:: 158/68 - Multi sesion report sent to physician concerning resting BPs. Peak Exercise Blood Pressure:: 164/72 Medication Changes:: No - Intervention Home Exercise/Activity Goal:: Moderate Exercise 30 min/day x 5 days/wk - Education Goals:: Warm-up, RPE PENNY Scale, S/S, Safe Exercise, Self-Monitoring - Exercise Program Goals Exercise Program Goals: Aerobic Activity >30 min Nutrition - Initial Assessment - Program Goals Nutrition Program Goals: LDL <70. Total Cholesterol <200. HDL >45. Triglycerides <150. HgbA1C <7%. BMI <25 - Diabetes Do you monitor your blood sugar at home?: No Nutrition - 30-Day Assessment - Program Goals Nutrition Program Goals: LDL <70. Total Cholesterol <200. HDL >45. Triglycerides <150. HgbA1C <7%. BMI <25 - Visit Date of Eval: 06/21/19 - Stages of Change Stages of Change:: Action - Lipids Has the patient seen the dietitian?: No - patient declined services - Diabetes Diabetes:: No - Weight Management Weight:: 172 lb 8 oz - Intervention Referral to dietitian:: No Will attend diet classes:: Yes - Education Attended class for:: Healthy eating Tobacco - Initial Assessment - Program Goals Tobacco Program Goals: Complete smoking cessation. Attend education classes. Improve Knowledge Test score - Learning Barriers Learning Barriers: [place], Ready to Learn Tobacco - 30-Day Assessment - Program Goals Tobacco Program Goals: Complete smoking cessation. Attend education classes. Improve Knowledge Test score - Stage of Change Stages of Change:: Action - Learning Barriers Learning Barriers: Participates in education - Family Support Do you have family support?: Yes - Tobacco Use Tobacco Use: Non-smoker Do you use smokeless tobacco?: No - Intervention Smoking Cessation Referral:: No Individual Education/Counseling:: No Education Schedule Given:: Yes - Education Attended class for:: Treating Heart Disease, How The Heart Works, What it means to have Heart Disease, How Coronary Artery Disease is Diagnosed, Heart Procedures, What Heart Medications Do, Risk Factors & Modifications, Living an Active Life, Nutrition, Emotions & Heart Disease, Stress Management & Relaxation, Sleep Disorders & Heart Disease Psychosocial - Initial Assess - Target Goals Target Goals: Assess presence or absence of depression. Using a valid screening tool, maximizes coping skills. Positive support system - Psychosocial Test Tool Used:: HANDS Depression Questionnaire - Assistive Devices Fall Risk Assessed:: Yes Psychosocial - 30-Day Assess - Target Goals Target Goals: Assess presence or absence of depression. Using a valid screening tool, maximizes coping skills. Positive support system - Stages of Change Stages of Change:: Action - Psychosocial Test Tool Used:: HANDS Depression Questionnaire - Intervention PS - Interventions: Yes Attend Stress Management Classes, Yes Uses Stress Management Skills, No Referral to Mental Health, No Referral to [facility] Case Management, No Referral to Physician - Education Attended classes for:: Coping techniques, Signs & symptoms of depression, Stress management, Relaxation techniques - Patient/Program Goal Preventative Medication(s):: Aspirin, AKHIL inhibitor, Clopidogrel, Beta poppy, Statin/lipid - Assistive Devices Assistive Devices:: None Fall Risk Assessed:: Yes Patient Health Questionnaire 30-Day Re-eval Assessment 1. Little interest or pleasure in doing things: Not at all 2. Feeling down, depressed, or hopeless: Not at all 3. Trouble falling or staying asleep, or sleeping too much: Several days 4. Feeling tired or having little energy: More than half the days 5. Poor appetite or overeating: More than half the days 6. Feeling bad about yourself -- or that you are a failure or have let yourself or your family down: Not at all 7. Trouble concentrating on things, such as reading the newspaper or watching television: Not at all 8. Moving or speaking so slowly that other people could have noticed. Or the opposite - being so fidgety or restless that you have been moving around a lot more than usual: Not at all 9. Thoughts that you would be better off , or of hurting yourself in some way: Not at all How difficult have these problems made it for you to do your work, take care of things at home, or get along with other people?: Somewhat difficult Total Score: 5 Self-Efficacy 30-Day Re-eval Assessment We would like to know how confident you are in doing certain activities. Please select your confidence level for:: Select your confidence level for the following using the scale 1-10 where 1 is not at all confident and 10 is totally confident. Your score is the average of all 6 responses. Fatigue: How confident are you that you can keep the fatigue caused by your disease from interfering with the things you want to do? Select Number: 3 Physical Discomfort or Pain: How confident are you that you can keep the physical discomfort or pain of your disease from interfering with the things you want to do? Select Number: 3 Emotional Distress: How confident are you that you can keep the emotional distress caused by your disease from interfering with the things you want to do? Select Number: 6 Other Symptoms or Health Problems: How confident are you that you can keep other symptoms or health problems from interfering with the things you want to do? Select Number: 4 Different Tasks and Activities: How confident are you that you can do the different tasks and activities needed to manage your health condition so as to reduce your need to see a doctor? Select Number: 7 Medication: How confident are you that you can do things other than just taking medication to reduce how much your illness affects your everyday life? Select Number: 8 Total Score:: 5
[2019-06-21 09:05] VITALS: BP 158/68; BP 164/72
--- NOTE | 2019-07-19 09:06 | PCM.CR.ITP ---
Exercise - 60-Day Assessment - Visit Date of Eval: 07/19/19 Session #:: 24 - patient has only missed one session! - Stages of Change Stages of Change:: Action - Physician Prescribed Exercise Modalities: Treadmill, Biodyne, Airdyne, NuStep Frequency (days/week): 3 Duration (Minutes):: 30-45 Intensity: 60-80% age predicted maximum heart rate reserve METs - Progression: 0.5-1.0 MET, RPE 11-14 WEEK: 5 up from 4.0 Target Heart Rate:: 90-116 w/ max HR 101 - Hypertension Resting Blood Pressure:: 138/64 Peak Exercise Blood Pressure:: 140/72 Medication Changes:: No - Intervention Home Exercise/Activity Goal:: Moderate Exercise 30 min/day x 5 days/wk - Education Goals:: Warm-up, RPE PENNY Scale, S/S, Safe Exercise, Self-Monitoring - Exercise Program Goals Exercise Program Goals: Aerobic Activity >30 min Nutrition - Initial Assessment - Program Goals Nutrition Program Goals: LDL <70. Total Cholesterol <200. HDL >45. Triglycerides <150. HgbA1C <7%. BMI <25 - Diabetes Do you monitor your blood sugar at home?: No Nutrition - 60-Day Assessment - Program Goals Nutrition Program Goals: LDL <70. Total Cholesterol <200. HDL >45. Triglycerides <150. HgbA1C <7%. BMI <25 - Visit Date of Eval: 07/19/19 - Stages of Change Stages of Change:: Action - Lipids Has the patient seen the dietitian?: No - Patient's insurance does not cover. - Diabetes Diabetes:: No - Weight Management Weight:: 168 lb - down from 172.5 - Intervention Referral to dietitian:: No Referral to Diabetic Clinic:: No Will attend diet classes:: Yes - Education Attended class for:: Healthy eating Tobacco - Initial Assessment - Program Goals Tobacco Program Goals: Complete smoking cessation. Attend education classes. Improve Knowledge Test score - Learning Barriers Learning Barriers: Vision, Ready to Learn Tobacco - 60-Day Assessment - Program Goals Tobacco Program Goals: Complete smoking cessation. Attend education classes. Improve Knowledge Test score - Stage of Change Stages of Change:: Action - Learning Barriers Learning Barriers: Participates in education - Family Support Do you have family support?: Yes - Tobacco Use Tobacco Use: Non-smoker Do you use smokeless tobacco?: No - Intervention Smoking Cessation Referral:: No Education Schedule Given:: Yes - Education Attended class for:: Treating Heart Disease, How The Heart Works, What it means to have Heart Disease, How Coronary Artery Disease is Diagnosed, Heart Procedures, What Heart Medications Do, Risk Factors & Modifications, Living an Active Life, Nutrition, Emotions & Heart Disease, Stress Management & Relaxation, Sleep Disorders & Heart Disease Psychosocial - Initial Assess - Target Goals Target Goals: Assess presence or absence of depression. Using a valid screening tool, maximizes coping skills. Positive support system - Psychosocial Test Tool Used:: HANDS Depression Questionnaire - Assistive Devices Fall Risk Assessed:: Yes Psychosocial - 60-Day Assess - Target Goals Target Goals: Assess presence or absence of depression. Using a valid screening tool, maximizes coping skills. Positive support system - Stages of Change Stages of Change:: Action - Psychosocial Test Tool Used:: HANDS Depression Questionnaire - Intervention PS - Interventions: Yes Attend Stress Management Classes, No Referral to Mental Health, No Referral to [facility] Case Management, No Referral to Physician, No Uses Stress Management Skills - Education Attended classes for:: Coping techniques, Signs & symptoms of depression, Stress management, Relaxation techniques - Patient/Program Goal Preventative Medication(s):: Aspirin, AKHIL inhibitor, Clopidogrel, Beta poppy, Statin/lipid - Assistive Devices Assistive Devices:: None Fall Risk Assessed:: Yes Patient Health Questionnaire 60-Day Re-eval Assessment 1. Little interest or pleasure in doing things: Not at all 2. Feeling down, depressed, or hopeless: Not at all 3. Trouble falling or staying asleep, or sleeping too much: Not at all 4. Feeling tired or having little energy: Several days 6. Feeling bad about yourself -- or that you are a failure or have let yourself or your family down: Not at all 7. Trouble concentrating on things, such as reading the newspaper or watching television: Not at all 8. Moving or speaking so slowly that other people could have noticed. Or the opposite - being so fidgety or restless that you have been moving around a lot more than usual: Not at all 9. Thoughts that you would be better off , or of hurting yourself in some way: Not at all How difficult have these problems made it for you to do your work, take care of things at home, or get along with other people?: Not difficult at all Total Score: 1 Self-Efficacy 60-Day Re-eval Assessment We would like to know how confident you are in doing certain activities. Please select your confidence level for:: Select your confidence level for the following using the scale 1-10 where 1 is not at all confident and 10 is totally confident. Your score is the average of all 6 responses. Fatigue: How confident are you that you can keep the fatigue caused by your disease from interfering with the things you want to do? Select Number: 5 Physical Discomfort or Pain: How confident are you that you can keep the physical discomfort or pain of your disease from interfering with the things you want to do? Select Number: 5 Emotional Distress: How confident are you that you can keep the emotional distress caused by your disease from interfering with the things you want to do? Select Number: 7 Other Symptoms or Health Problems: How confident are you that you can keep other symptoms or health problems from interfering with the things you want to do? Select Number: 6 Different Tasks and Activities: How confident are you that you can do the different tasks and activities needed to manage your health condition so as to reduce your need to see a doctor? Select Number: 8 Medication: How confident are you that you can do things other than just taking medication to reduce how much your illness affects your everyday life? Select Number: 9 Total Score:: 6
[2019-07-19 09:10] VITALS: BP 138/64; BP 140/72
== END 2019-07-20 23:59 ==
LOC: CR 11:30
PROVIDERS: Family Provider Family Medicine; PCP Family Medicine; Referring Provider Internal Medicine Cardiovascular Disease; Visit Provider Internal Medicine Cardiovascular Disease
DX: Z98.61 Coronary angioplasty status (principal)
CPT/HCPCS: 93798

== ENCOUNTER 2019-08-16 11:30 | Outpatient (RCR) | payer MEDICARE, OTHER, SELFPAY ==
[2019-05-31 11:18] VITALS: BMI 31.2
[2019-07-21 00:55] VITALS: BP 138/64; BP 140/72
--- NOTE | 2019-08-16 06:50 | CR.ITP_ITS ---
Exercise - Final/Discharge - Visit Date of Eval: 08/16/19 Session #:: 36 - Stages of Change Stages of Change:: Action - Physician Prescribed Exercise Modalities: Treadmill, Airdyne, NuStep Frequency (days/week): 3 Duration (Minutes):: 30-45 Intensity: 60-80% age predicted maximum heart rate reserve METs - Progression: 0.5-1.0 MET, RPE 11-14 WEEK: 5 METs Target Heart Rate:: 90-116 W/MAX HR 96 - Hypertension Do any of the following apply?: Yes, Medication Resting Blood Pressure:: 140/60 Peak Exercise Blood Pressure:: 152/72 - Intervention Home Exercise/Activity Goal:: Moderate Exercise 30 min/day x 5 days/wk - Education Goal Progress: Goal Met - Exercise Program Goals Exercise Program Goals: Aerobic Activity >30 min - ENCOURAGED PATIENT TO MAINTAIN EXERCISE PARTICIPATION Nutrition - Initial Assessment - Program Goals Nutrition Program Goals: LDL <70. Total Cholesterol <200. HDL >45. Triglycerides <150. HgbA1C <7%. BMI <25 - Diabetes Do you monitor your blood sugar at home?: No Nutrition - Final Assessment - Program Goals Nutrition Program Goals: LDL <70. Total Cholesterol <200. HDL >45. Trigly cerides <150. HgbA1C <7%. BMI <25 - Visit Date of Eval: 08/16/19 - Stages of Change Stages of Change:: Action - Diabetes Diabetes:: No Insulin: No Non-Insulin Dependent?: No - Weight Management Height: 5 ft 2 in Weight:: 166 lb 8 oz Weight Goal (kg):: 156 lb Body Fat %:: 31.4 - ENCOURAGED PATIENT IN WEIGHT LOSS ATTEMPTS Goal % Body Fat:: 27 - Intervention Referral to dietitian:: No Referral to Diabetic Clinic:: No Will attend diet classes:: Yes - Education Education Goal Reached?: No - PATIENT MADE MINIMAL ATTEMPT TO LOSE WEIGHT CHANGE DIET HABITS. Tobacco - Initial Assessment - Program Goals Tobacco Program Goals: Complete smoking cessation. Attend education classes. Improve Knowledge Test score - Learning Barriers Learning Barriers: Vision, Ready to Learn Tobacco - Final Assessment - Program Goals Tobacco Program Goals: Complete smoking cessation. Attend education classes. Improve Knowledge Test score - Stage of Change Stages of Change:: Action - Family Support Do you have family support?: Yes - Tobacco Use Tobacco Use: Non-smoker Do you use smokeless tobacco?: No - Intervention Smoking Cessation Referral:: No Individual Education/Counseling:: No Education Schedule Given:: Yes - Education Education Goal Reached?: Yes - PATIENT ACTIVELY PARTICIPATED IN EDUCATION Psychosocial - Initial Assess - Target Goals Target Goals: Assess presence or absence of depression. Using a valid screening tool, maximizes coping skills. Positive support system - Psychosocial Test Tool Used:: HANDS Depression Questionnaire - Assistive Devices Fall Risk Assessed:: Yes Psychosocial - Final Assessmen - Target Goals Target Goals: Assess presence or absence of depression. Using a valid screening tool, maximizes coping skills. Positive support system - Stages of Change Stages of Change:: Action - Psychosocial Test Tool Used:: HANDS Depression Questionnaire - Intervention PS - Interventions: Yes Attend Stress Management Classes, Yes Uses Stress Management Skills, No Referral to Mental Health, No Referral to [facility] Case Management, No Referral to Physician - Education Education Goal Reached?: Yes - Patient/Program Goal Preventative Medication(s):: Aspirin, AKHIL inhibitor, Clopidogrel, Beta poppy, Statin/lipid - Assistive Devices Assistive Devices:: None Fall Risk Assessed:: Yes Patient Health Questionnaire Discharge Assessment 1. Little interest or pleasure in doing things: Not at all 2. Feeling down, depressed, or hopeless: Not at all 3. Trouble falling or staying asleep, or sleeping too much: Not at all 4. Feeling tired or having little energy: Several days 5. Poor appetite or overeating: Several days 6. Feeling bad about yourself -- or that you are a failure or have let yourself or your family down: Not at all 7. Trouble concentrating on things, such as reading the newspaper or watching television: Not at all 8. Moving or speaking so slowly that other people could have noticed. Or the opposite - being so fidgety or restless that you have been moving around a lot more than usual: Not at all 9. Thoughts that you would be better off , or of hurting yourself in some way: Not at all Total Score: 2 SHARLENE-Q SV Test - Statements CAD is a disease of the arteries in the heart: False Examples of risk factors for heart disease: True Angina is chest pain or discomfort: True The benefits of resistance training include: True Eating more meat and dairy products: False Anti-platelet medications such as aspirin are important: True The only effective way to manage stress: False An exercise warm-up slowly increases heart rate: True Prepared, processed foods usually have high sodium: True Depression is common after a heart attack: True The statin medications lower cholesterol: True To control blood pressure, lower the amount of sodium: True If someone gets chest discomfort during walking: False Transfats are partially hydrogenated vegetable oils: True Sleep apnea that is not treated increases the risk: False To control cholesterol, one should become a vegetarian: False Someone knows if he/she is exercising at the right level: True Diabetes cannot be prevented with exercise & health eating: False Stress is a large risk for heart attack: True A diet that can help lower blood pressure is rich in: True - Total Score Total Correct Responses: 20 Self-Efficacy Discharge Assessment We would like to know how confident you are in doing certain activities. Please select your confidence level for:: Select your confidence level for the following using the scale 1-10 where 1 is not at all confident and 10 is totally confident. Your score is the average of all 6 responses. Fatigue: How confident are you that you can keep the fatigue caused by your disease from interfering with the things you want to do? Select Number: 6 Physical Discomfort or Pain: How confident are you that you can keep the physical discomfort or pain of your disease from interfering with the things you want to do? Select Number: 6 Emotional Distress: How confident are you that you can keep the emotional distress caused by your disease from interfering with the things you want to do? Select Number: 8 Other Symptoms or Health Problems: How confident are you that you can keep other symptoms or health problems from interfering with the things you want to do? Select Number: 7 Different Tasks and Activities: How confident are you that you can do the different tasks and activities needed to manage your health condition so as to reduce your need to see a doctor? Select Number: 9 Medication: How confident are you that you can do things other than just taking medication to reduce how much your illness affects your everyday life? Select Number: 10 Total Score:: 7 Nutrition Survey - Nutrition Survey Instructions Scoring Instructions: Scoring is as follows: Yes = 1 points. No = 0 point. Patient score that is >/=12 is considered to be at potential nutritional risk and could benefit from a referral to a registered dietitian. - Nutrition Survey Initial Have you lost >10 lbs over the past 2 months without trying?: No Are you following a special diet at home for diabetes, low fat, or low salt?: Yes - LOW FAT, LOW SODIUM, CARDIAC DIET. Are you interested in meeting with a dietitian for help understanding your diet?: No Do you eat less than 3 meals a day?: No Do you eat fatty meats (akers, sausage, ribs, etc), fried foods, desserts, large amounts of salad dressings, margarine, butter, or cheese most days?: No Do you have food allergies? [Enter types in comment field]: No Do you eat in restaurants more than 3 times a week?: No Do you season food with salt, seasoning salt, or garlic salt?: No Do you used canned, boxed, frozen meals, or soups, seasoning packets?: Yes Total Score:: 2
[2019-08-16 06:57] VITALS: BP 140/60; BP 152/72
== END 2019-08-19 23:59 ==
LOC: CR 11:30
PROVIDERS: Family Provider Family Medicine; PCP Family Medicine; Referring Provider Internal Medicine Cardiovascular Disease; Visit Provider Internal Medicine Cardiovascular Disease
DX: Z98.61 Coronary angioplasty status (principal)
CPT/HCPCS: 93798

== ENCOUNTER → 2019-09-02 11:11 | Outpatient (CLI) | payer MEDICARE, OTHER, SELFPAY ==
[2019-09-02 10:25] VITALS: BMI 29.6
[2019-09-02 11:48] LABS: Absolute Lymphocyte Count 1.45 X10^3/uL (0.83-4.51); Absolute Neutrophil Count 2.6 X10^3/uL (2.0-7.7); Basophil# 0.01 X10^3/uL; Basophil% 0.2 % (0-1); Eosinophil# 0.13 X10^3/uL; Eosinophils% 2.8 % (0-5); Hematocrit 39.3 % (37-47); Hemoglobin 12.8 g/dL (12.0-15.0); Lymphocyte # 1.45 X10^3/ul (4.0); Lymphocyte % 31.5 % (19-41); Mean Corp Hgb Conc 32.6 g/dL (32-36); Mean Corpuscular Hgb 28.2 pg (27.0-32.0); Mean Corpuscular Volume 86.6 fL (81-99); Monocyte# 0.45 X10^3/uL; Monocyte% 9.8 % (0-10); NRBC Flagged by Analyzer 0 % (0-5); Neutrophil # 2.56 X10^3/uL (2.7-7.7); Neutrophil % 55.5 % (47-70); Platelet Count 154 K/mm3 (150-450); RBC Distribution Width CV 12.9 % (11.6-14.6); RBC Distribution Width SD 40.7 fl (35.1-43.9); Red Blood Count 4.54 M/mm3 (4.2-5.4); White Blood Count 4.6 K/mm3 (4.4-11.0)
== END ==
PROVIDERS: Family Provider Family Medicine; PCP Family Medicine; Referring Provider Physician Assistant Medical; Visit Provider Physician Assistant Medical
DX: I25.10 Atherosclerotic heart disease of native coronary artery without angina pectoris (principal)
CPT/HCPCS: 36415; 85025

== ENCOUNTER → 2019-09-05 09:47 | Outpatient (CLI) | payer MEDICARE, OTHER, SELFPAY ==
[2019-09-02 10:25] VITALS: BMI 29.6
--- NOTE | 2019-09-05 09:49 | CDU_ITS ---
Reason For Study: Carotid artery disease Rt. Velocities/BP Lt. Velocities/BP Prox CCA 54.2/8 cm/sec. Prox CCA 91.9/22.5 cm/sec. Mid CCA 48.7/10.2 cm/sec. Mid CCA 67.9/15.1 cm/sec. Dist CCA 50.9/11.3 cm/sec. Dist CCA 63/15.1 cm/sec. Prox ICA 256.3/59.1 cm/sec. Prox ICA 81.4/20 cm/sec. Mid ICA 95/20.4 cm/sec. Mid ICA 81.4/26.2 cm/sec. Dist ICA 84/16 cm/sec. Dist ICA 75.3/22.5 cm/sec. Rt. ICA/CCA = 5.04. Lt. ICA/CCA = 1.2. Prox ECA 154/7.9 cm/sec. Prox ECA 70.4/5.3 cm/sec. Rt. Vert. 70.4/12.6 cm/sec. Lt. Vert. 71.6/15.1 cm/sec. Right Extracranial There is homogeneous, smooth atherosclerotic plaque noted in the right common carotid artery. There is heterogeneous, irregular atherosclerotic plaque noted in the right internal carotid artery. The atherosclerotic plaque causes acoustic shadowing. There is heterogeneous, irregular atherosclerotic plaque noted in the right external carotid artery. Antegrade flow is noted in the right vertebral artery. Left Extracranial There is homogeneous, smooth atherosclerotic plaque noted in the left common carotid artery. There is heterogeneous, irregular atherosclerotic plaque noted in the left internal carotid artery. There is heterogeneous, smooth atherosclerotic plaque noted in the left external carotid artery. Antegrade flow is noted in the left vertebral artery. Procedure Carotid Duplex [id number]. Exam performed in department. 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 Performed By: Echo Villarreal RVT
== END ==
PROVIDERS: Family Provider Family Medicine; PCP Family Medicine; Referring Provider Physician Assistant Medical; Visit Provider Physician Assistant Medical
DX: I73.9 Peripheral vascular disease, unspecified (principal); I65.23 Occlusion and stenosis of bilateral carotid arteries
CPT/HCPCS: 93880

== ENCOUNTER → 2020-04-02 09:40 | Outpatient (CLI) | payer MEDICARE, OTHER, SELFPAY ==
[2020-03-16 11:13] VITALS: BMI 29.2
[2020-04-02 10:59] LABS: AST(SGOT) 24 U/L (15-37); Alanine Aminotransfer ALT/SGPT 37 U/L (13-56); Albumin, Serum 3.8 g/dL (3.2-5.0); Alkaline Phosphatase 91 U/L (45-117); Bilirubin, Direct 0.16 mg/dL (0.00-0.30); Cholesterol 161 mg/dL (200); Globulin 3.5 g/dL (2.2-4.2); High Density Lipoprotein 66 mg/dL; Protein, Total 7.3 g/dL (6.4-8.2); Triglycerides 96 mg/dL; Very Low Density Lipoprotein 19 mg/dL (5-40)
== END ==
PROVIDERS: PCP Family Medicine; Referring Provider Internal Medicine Cardiovascular Disease; Visit Provider Internal Medicine Cardiovascular Disease
DX: E78.2 Mixed hyperlipidemia (principal); I25.10 Atherosclerotic heart disease of native coronary artery without angina pectoris; Z95.5 Presence of coronary angioplasty implant and graft
CPT/HCPCS: 36415; 80061; 80076

== ENCOUNTER → 2020-05-25 09:50 | Outpatient (CLI) | payer MEDICARE, OTHER, SELFPAY ==
[2020-03-16 11:13] VITALS: BMI 29.2
--- NOTE | 2020-05-25 09:50 | CDU_ITS ---
Reason For Study: Carotid stenosis Rt. Velocities/BP Lt. Velocities/BP Prox CCA 57.5/6.9 cm/sec. Prox CCA 74.1/16.3 cm/sec. Mid CCA 43.2/10.2 cm/sec. Mid CCA 65.5/12.6 cm/sec. Dist CCA 42.1/10.2 cm/sec. Dist CCA 59.3/15.1 cm/sec. Prox ICA 240.1/49.4 cm/sec. Prox ICA 41.9/10.7 cm/sec. Mid ICA 188.4/33.3 cm/sec. Mid ICA 55.1/17.3 cm/sec. Dist ICA 108.2/24.8 cm/sec. Dist ICA 73/21.1 cm/sec. Rt. ICA/CCA = 5.6. Lt. ICA/CCA = 1.1. Prox ECA 147.7/5 cm/sec. Prox ECA 66.7/5.3 cm/sec. Rt. Vert. 31.1/9.1 cm/sec. Lt. Vert. 28.7/5.2 cm/sec. Right Extracranial There is homogeneous, smooth atherosclerotic plaque noted in the right common carotid artery. Structure noted in the thyroid measuring 1.07 x 1.31 x 1.59 cm. There is heterogeneous, irregular atherosclerotic plaque noted in the right internal carotid artery. There is heterogeneous, irregular atherosclerotic plaque noted in the right external carotid artery. Antegrade flow is noted in the right vertebral artery. Left Extracranial There is heterogeneous, irregular atherosclerotic plaque noted in the left common carotid artery. There is heterogeneous, irregular atherosclerotic plaque noted in the left internal carotid artery. There is heterogeneous, smooth atherosclerotic plaque noted in the left external carotid artery. Antegrade flow is noted in the left vertebral artery. Procedure Carotid Duplex [id number]. Exam performed in department. Interpretation Summary Irregular calcific plaque with shadowing at the proximal right internal and external carotid arteries >70% stenosis right internal carotid <50% stenosis right external carotid Irregular heterogenous plaque at the proximal left internal carotid artery with less than 50% stenosis. <50% stenosis left external carotid Patent and antegrade bilateral vertebral arteries No change from the previous examination of September 05, 2019 Ordering Physician: Milad Hodgson Referring Physician: Angelita Roman M.D. Performed By: Echo Villarreal RVT
== END ==
PROVIDERS: PCP Family Medicine; Referring Provider Surgery; Visit Provider Surgery
DX: I65.23 Occlusion and stenosis of bilateral carotid arteries (principal)
CPT/HCPCS: 93880

== ENCOUNTER → 2020-06-10 10:56 | Outpatient (CLI) | payer MEDICARE, OTHER, SELFPAY ==
[2020-06-01 09:59] VITALS: BMI 29.2
--- NOTE | 2020-06-10 10:57 | US_ITS ---
STUDY: THYROID ULTRASOUND REASON FOR EXAM: Female, 84 years old. Abnormal thyroid function tests TECHNIQUE: Ultrasound evaluation of the thyroid was performed with real-time and static wooten-scale imaging. COMPARISON: None. FINDINGS: RIGHT LOBE: The right lobe of the thyroid gland measures 3.9 x 1.7 x 1.7 cm. There is a heterogeneous echotexture. There is a solid hypoechoic nodule measuring 1.7 x 1.2 x 1.1 cm, and a simple 0.5 x 0.6 x 0.5 cm cyst. LEFT LOBE: The left lobe of the thyroid gland measures 4.0 x 0.9 x 1.7 cm. There is a heterogeneous echotexture. There is a solid hypoechoic nodule measuring 1.5 x 1.0 x 1.0 cm and a simple cyst measuring 0.4 cm. ISTHMUS: The isthmus measures 0.4 cm. The regional lymph nodes are normal. US/Thyroid IMPRESSION: Normal size heterogeneous thyroid gland. There are bilateral solid nodules. Findings suggest goiter, but sonography cannot distinguish between benign and aggressive nodules. Recommend 6 month follow-up to assure stability Bilateral simple subcentimeter cysts Electronically Signed: Brady Trent MD at 12:06 EDT , Service support ,
[2020-06-10 14:16] LABS: T4 Total, Thyroxin 7.2 ug/dL (4.8-13.9); Thyroid Stim Hormone (TSH) 2.79 uIU/mL (0.358-3.74)
== END ==
PROVIDERS: PCP Family Medicine; Referring Provider Surgery; Visit Provider Surgery
DX: E04.1 Nontoxic single thyroid nodule (principal)
CPT/HCPCS: 36415; 76536; 84436; 84443

== ENCOUNTER → 2020-06-24 14:00 | Outpatient (CLI) | payer MEDICARE, OTHER, SELFPAY ==
--- NOTE | 2020-06-24 14:00 | ASPS_PTH ---
PATIENT: CÉSAR PRESCOTT LOC: [facility] U#:[id number] AGE/SX: 89/F ROOM: RE06/24/[address]: Dr. Milad Hodgson MD : [id number] BED: DIS: SPEC #: [id number] RECD: 06/25/20 06:42 STATUS: IGNACIA DANIAL #: [id number] LANRE: 06/24/20 14:[address]: Milad Hodgson DEPT: CYTOLOGY RECD BY: Hernesto Cowan ENTERED: 06/25/20 09:09 SP TYPE: ASPIRATION OTHR DR: Dr. Angelita Roman MD Tissues: Thyroid gland, NOS Procedures: Special Stain Group II Cytology Other HEADER OPERATION: Right thyroid FNA PRE-OP DIAGNOSIS: Bilateral thyroid nodules TISSUE SUBMITTED: Right thyroid slides DIAGNOSIS CYTOLOGY Fine needle aspiration, right thyroid nodule (smears): Adequate for evaluation. Negative, consistent with benign follicular/colloid nodule. AM:lisa 06/26/20 CYTOLOGY STUDY Slides are reviewed. CYTOLOGY GROSS Received are eight smears labeled with the patient's name and designated per the requisition as right thyroid. Submitted for staining. / lisa 06/25/20 TC:5 CPT: 36677
[2020-06-24 14:08] VITALS: BMI 29.2
== END ==
PROVIDERS: PCP Family Medicine; Referring Provider Surgery; Visit Provider Surgery
DX: E04.2 Nontoxic multinodular goiter (principal)
CPT/HCPCS: 88161; 88313

== ENCOUNTER → 2020-10-20 14:26 | Outpatient (CLI) | payer MEDICARE, OTHER, SELFPAY ==
[2020-06-24 14:08] VITALS: BMI 29.2
[2020-10-20 18:57] LABS: AST(SGOT) 24 U/L (15-37); Alanine Aminotransfer ALT/SGPT 35 U/L (13-56); Cholesterol 155 mg/dL (200); High Density Lipoprotein 62 mg/dL; Thyroid Stim Hormone (TSH) 3.48 uIU/mL (0.358-3.74); Triglycerides 124 mg/dL; Very Low Density Lipoprotein 25 mg/dL (5-40)
[2020-10-21 15:06] LABS: Anion Gap 8 (5-15); BUN 17 mg/dL (7-18); BUN/Creat Ratio 19.7 RATIO (10-20); Calcium,Total 10.3 mg/dL (8.5-10.1); Chloride 109 mmol/L (98-107); Creatinine, Serum 0.86 mg/dL (0.55-1.02); EST Glomerular Filtration Rate 66 mL/min (>60); Est Glom Filt Rate - Afr Amer 80 mL/min (>60); Glucose 120 mg/dL (74-106); Sodium Level 142 mmol/L (136-145)
== END ==
PROVIDERS: PCP Family Medicine; Referring Provider Family Medicine; Visit Provider Family Medicine
DX: E78.5 Hyperlipidemia, unspecified (principal); I10 Essential (primary) hypertension
CPT/HCPCS: 36415; 80048; 80061; 84443; 84450; 84460

== ENCOUNTER → 2021-05-27 09:59 | Outpatient (CLI) | payer MEDICARE, OTHER, SELFPAY ==
[2020-11-06 11:25] VITALS: BMI 29.2
--- NOTE | 2021-05-27 10:02 | CDU_ITS ---
Reason For Study: Carotid stenosis Rt. Velocities/BP Lt. Velocities/BP Prox CCA 50.1/5.1 cm/sec. Prox CCA 76/19.4 cm/sec. Mid CCA 41.2 cm/sec. Mid CCA 70.5/15.7 cm/sec. Dist CCA 44/10 cm/sec. Dist CCA 59.7/13 cm/sec. Prox ICA 254/53.7 cm/sec. Prox ICA 72/20.4 cm/sec. Mid ICA 167.3/19.7 cm/sec. Mid ICA 58.5/14.2 cm/sec. Dist ICA 82.5/18.9 cm/sec. Dist ICA 94.1/22.8 cm/sec. Rt. ICA/CCA = 5.77. Lt. ICA/CCA = 1.33. Prox ECA 165.5/17.5 cm/sec. Prox ECA 80.6/8.1 cm/sec. Rt. Vert. 41/9.7 cm/sec. Lt. Vert. 37.4/11 cm/sec. Right Extracranial There is homogeneous, smooth atherosclerotic plaque noted in the right common carotid artery. There is heterogeneous, irregular atherosclerotic plaque noted in the right internal carotid artery. There is heterogeneous, irregular atherosclerotic plaque noted in the right external carotid artery. Antegrade flow is noted in the right vertebral artery. Left Extracranial There is heterogeneous, irregular atherosclerotic plaque noted in the left common carotid artery. There is heterogeneous, irregular atherosclerotic plaque noted in the left internal carotid artery. There is heterogeneous, smooth atherosclerotic plaque noted in the left external carotid artery. Antegrade flow is noted in the left vertebral artery. Procedure Carotid Duplex [id number]. This is a Carotid Duplex examination using B-mode, color flow and specral Doppler. Exam performed in department. VL/Carotid Duplex Ultrasound Interpretation Summary Extensive calcific plaque with shadowing at the right carotid bulb and proximal internal carotid artery Greater than 70% stenosis right internal carotid artery Less than 50% stenosis right external carotid artery Irregular calcific plaque at the proximal left internal carotid artery with les s than 50% stenosis Less than 50% stenosis left external carotid artery Patent and antegrade vertebral arteries bilaterally Slight peak systolic velocity progression right internal carotid artery from th e previous examination of May 25, 2020 Ordering Physician: Milad Hodgson Referring Physician: Angelita Roman M.D. Performed By: Echo Villarreal RVT and Student
== END ==
PROVIDERS: PCP Family Medicine; Referring Provider Surgery; Visit Provider Surgery
DX: I65.21 Occlusion and stenosis of right carotid artery (principal)
CPT/HCPCS: 93880

== ENCOUNTER → 2021-05-28 11:13 | Outpatient (CLI) | payer MEDICARE, OTHER, SELFPAY ==
[2021-05-28 10:10] VITALS: BMI 30.2
[2021-05-28 13:53] LABS: Hematocrit 41.8 % (37-47); Hemoglobin 13.6 g/dL (12.0-15.0); Mean Corp Hgb Conc 32.5 g/dL (32-36); Mean Corpuscular Hgb 28.3 pg (27.0-32.0); Mean Corpuscular Volume 86.9 fL (81-99); Platelet Count 187 K/mm3 (150-450); RBC Distribution Width CV 12.9 % (11.6-14.6); RBC Distribution Width SD 41.1 fl (35.1-43.9); Red Blood Count 4.81 M/mm3 (4.2-5.4); White Blood Count 5.2 K/mm3 (4.4-11.0)
[2021-05-28 14:30] LABS: Anion Gap 5 (5-15); BUN 16 mg/dL (7-18); Calcium,Total 10.2 mg/dL (8.5-10.1); Chloride 106 mmol/L (98-107); Creatinine, Serum 0.89 mg/dL (0.55-1.02); EST Glomerular Filtration Rate 64 mL/min (>60); Est Glom Filt Rate - Afr Amer 77 mL/min (>60); Glucose 93 mg/dL (74-106); Potassium 4.4 mmol/L (3.5-5.1); Sodium Level 141 mmol/L (136-145); Thyroid Stim Hormone (TSH) 2.03 uIU/mL (0.358-3.74)
== END ==
PROVIDERS: PCP Family Medicine; Referring Provider Physician Assistant Medical; Visit Provider Physician Assistant Medical
DX: R53.82 Chronic fatigue, unspecified (principal); I25.10 Atherosclerotic heart disease of native coronary artery without angina pectoris
CPT/HCPCS: 36415; 80048; 84443; 85027

== ENCOUNTER → 2021-06-08 08:19 | Outpatient (CLI) | payer MEDICARE, OTHER, SELFPAY ==
[2021-06-01 05:47] VITALS: BMI 30.2
--- NOTE | 2021-06-08 08:21 | CT_ITS ---
STUDY: CTA NECK WITH CONTRAST REASON FOR EXAM: Female, 85 years old. Carotid stenosis bilateral RADIATION DOSAGE (If Supplied By Facility): CTDIvol = ( 21.28 ) mGy, DLP = ( 553.26 ) mGycm TECHNIQUE: CT angiography with multi-detector data acquisition was performed from the aortic arch to the skull base following intravenous administration of IV 100mL Isovue-370. MIP images were reconstructed from the axial data set. Post-processing of the angiographic images was performed, with multiplanar reformation and 3D reconstruction. Individualized dose optimization techniques were used for this CT. COMPARISON: None. FINDINGS: AORTIC ARCH: There is atherosclerotic calcific plaque formation of the aortic arch and great vessels arising from the aortic arch, without a hemodynamically significant stenosis. There is a normal origin of the brachiocephalic, left common carotid, and left subclavian arteries. Atherosclerotic plaque formation at the origin of the right brachiocephalic artery. RIGHT CAROTID ARTERIES: Normal right common carotid artery (CCA). Normal right common carotid bulb. There is severe atherosclerotic plaque formation of the origin of the right internal carotid artery with a near complete occlusion. Normal visualized cervical portion of the right internal carotid artery. Normal origin of the right external carotid artery (ECA). LEFT CAROTID ARTERIES: Atherosclerotic plaque formation at the origin of the left common carotid artery. Normal left common carotid bulb. There is moderate atherosclerotic plaque formation of the origin of the left internal carotid artery with an estimated stenosis of 50-69% stenosis. Normal visualized cervical portion of the left internal carotid artery. Normal origin of the left external carotid artery (ECA). VERTEBRAL ARTERIES: Normal bilateral vertebral arteries. CT/CTA Neck W/WO Contrast IMPRESSION: High-grade stenosis at the origin of the right internal carotid artery causes might calcific plaques. 50-69% stenosis at the origin of the left internal carotid artery. Electronically Signed: Jaziel Lindo MD at 10:39 EDT , Service support ,
== END ==
PROVIDERS: PCP Family Medicine; Referring Provider Surgery; Visit Provider Surgery
DX: I65.29 Occlusion and stenosis of unspecified carotid artery (principal)
CPT/HCPCS: 70498; Q9967

== ENCOUNTER → 2021-06-14 10:47 | Outpatient (CLI) | payer MEDICARE, OTHER, SELFPAY ==
[2021-05-28 10:10] VITALS: BMI 30.2
[2021-06-10 15:13] VITALS: BMI 31.1
== END ==
PROVIDERS: PCP Family Medicine; Referring Provider Physician Assistant Medical; Visit Provider Physician Assistant Medical
DX: R53.82 Chronic fatigue, unspecified (principal); I25.10 Atherosclerotic heart disease of native coronary artery without angina pectoris
CPT/HCPCS: 93225; 93226

== ENCOUNTER 2021-06-29 05:45 | Inpatient (IN) | payer MEDICARE, OTHER, SELFPAY ==
[2021-06-10 15:13] VITALS: BMI 31.1
[2021-06-22 14:50] VITALS: BMI 31.1
--- NOTE | 2021-06-24 12:04 | EKG12_ITS ---
Test Reason : PREOP Blood Pressure : / mmHG Vent. Rate : 059 BPM Atrial Rate : 059 BPM P-R Int : 194 ms QRS Dur : 142 ms QT Int : 450 ms P-R-T Axes : 077 060 027 degrees QTc Int : 445 ms Sinus bradycardia Right bundle branch block Abnormal ECG Confirmed by SHIRA GARCIA, EMILY ([id number]), video editor RITCHIE MADRIGAL ([id number]) on 06/25/2021 8:58:58 AM Referred By: Milad Hodgson Confirmed By:EMILY SILVA MD
[2021-06-24 12:50] LABS: Hematocrit 39.9 % (37-47); Hemoglobin 13.4 g/dL (12.0-15.0); Mean Corp Hgb Conc 33.6 g/dL (32-36); Mean Corpuscular Hgb 28.8 pg (27.0-32.0); Mean Corpuscular Volume 85.8 fL (81-99); Mean Platelet Vol. 10.8 fl (6.2-12.0); Platelet Count 210 K/mm3 (150-450); RBC Distribution Width CV 12.8 % (11.6-14.6); RBC Distribution Width SD 39.6 fl (35.1-43.9); Red Blood Count 4.65 M/mm3 (4.2-5.4); White Blood Count 5.1 K/mm3 (4.4-11.0)
[2021-06-24 13:11] LABS: Anion Gap 7 (5-15); BUN 17 mg/dL (7-18); BUN/Creat Ratio 20.8 RATIO (10-20); Calcium,Total 10.7 mg/dL (8.5-10.1); Chloride 99 mmol/L (98-107); Creatinine, Serum 0.82 mg/dL (0.55-1.02); EST Glomerular Filtration Rate 71 mL/min (>60); Est Glom Filt Rate - Afr Amer 85 mL/min (>60); Glucose 113 mg/dL (74-106); Potassium 4.2 mmol/L (3.5-5.1); Sodium Level 136 mmol/L (136-145)
[2021-06-29] VITALS (29 sets, daily range): BP systolic 87–140; BP diastolic 37–67; PULSE 54–76; RESP 16–18; TEMP 36.2–36.7; O2SAT 93–100; BMI 30.5
--- NOTE | 2021-06-29 06:31 | HP.PCM_ITS ---
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 Accompanied by: Self Is patient in pain?: No Allergies Sulfa (Sulfonamide Antibiotics) Allergy (Verified 06/01/21 12:55) Rash Medications metoprolol succinate 25 mg tablet,extended release 24 hr 25 mg PO DAILY 04/08/17 [History Confirmed 06/01/21] cholecalciferol (vitamin D3) 25 mcg (1,000 unit) capsule 1,000 unit PO DAILY 03/22/19 [History Confirmed 06/10/21] coenzyme Q10 100 mg capsule 100 mg PO DAILY 03/22/19 [History Confirmed 06/10/21] multivitamin 1 tab PO DAILY 03/28/19 [History Confirmed 06/10/21] aspirin 81 mg tablet,delayed release 81 mg PO DAILY #1 tab 05/08/19 [Rx Confirmed 06/10/21] atorvastatin 40 mg tablet 40 mg PO QHS #90 tab 06/29/20 [Rx Confirmed 06/10/21] clopidogrel 75 mg tablet 75 mg PO DAILY #90 tab 11/06/20 [Rx Confirmed 06/10/21] lisinopril 10 mg tablet 10 mg PO DAILY tab 05/28/21 [History Confirmed 06/10/21] meloxicam 15 mg tablet 15 mg PO DAILY tab 05/28/21 [History Confirmed 06/10/21] [facility]LY [facility] Medical History Abnormal stress test Arthritis Atherosclerotic heart disease of [place] coronary artery without angina pectoris Carotid stenosis, right Dyspnea on exertion Encounter for monitoring antiplatelet therapy Essential hypertension Fatigue history of thyroid biopsy (~06/2020) Mixed hyperlipidemia RACHID (obstructive sleep apnea) Presence of stent in coronary artery (~05/14/19) Secondary pulmonary hypertension Sleep apnea SOB (shortness of breath) Thyroid nodule Surgical History History of cataract surgery History of hip replacement History of knee replacement History of shoulder surgery Hx of heart artery stent Presence of coronary angioplasty implant and graft (~05/14/19) Family History Father Heart disease Grandfather Heart disease Grandmother CVA (cerebral vascular accident) Son Heart disease Myocardial infarction Mother Hypertension Heart disease Social History Smoking Status: Never smoker alcohol intake: never substance use type: does not use caffeine: Yes Type: coffee Number of servings: 1 what type of physical activity do you participate in: none HPI HPI HPI: CÉSAR PRESCOTT, is a 85 F who presents to the office today for ongoing surgical consultation regarding extracranial carotid artery occlusive disease. The patient was evaluated recently by cardiology on May 28, 2021. She had a previous cardiac catheterization May 14, 2019 with a PCI of an LAD lesion with LEMUEL placement and a PTCA of the D1 segment alone Please refer to my recent notes as noted below. The patient has been having trouble with dizziness. She has had a known history of extracranial carotid artery occlusive disease. Carotid duplex imaging suggested advancement of disease. We therefore proceeded with a CTA of the carotids. This demonstrated a high-grade stenosis of the right internal carotid. I have personally reviewed those images and concur with the findings. June 08, 2021 STUDY: CTA NECK WITH CONTRAST REASON FOR EXAM: Female, 85 years old. Carotid stenosis bilateral RADIATION DOSAGE (If Supplied By Facility): CTDIvol = ( 21.28 ) mGy, DLP = ( 553.26 ) mGycm TECHNIQUE: CT angiography with multi-detector data acquisition was performed from the aortic arch to the skull base following intravenous administration of IV 100mL Isovue-370. MIP images were reconstructed from the axial data set. Post-processing of the angiographic images was performed, with multiplanar reformation and 3D reconstruction. Individualized dose optimization techniques were used for this CT. COMPARISON: None. FINDINGS: AORTIC ARCH: There is atherosclerotic calcific plaque formation of the aortic arch and great vessels arising from the aortic arch, without a hemodynamically significant stenosis. There is a normal origin of the brachiocephalic, left common carotid, and left subclavian arteries. Atherosclerotic plaque formation at the origin of the right brachiocephalic artery. RIGHT CAROTID ARTERIES: Normal right common carotid artery (CCA). Normal right common carotid bulb. There is severe atherosclerotic plaque formation of the origin of the right internal carotid artery with a near complete occlusion. Normal visualized cervical portion of the right internal carotid artery. Normal origin of the right external carotid artery (ECA). LEFT CAROTID ARTERIES: Atherosclerotic plaque formation at the origin of the left common carotid artery. Normal left common carotid bulb. There is moderate atherosclerotic plaque formation of the origin of the left internal carotid artery with an estimated stenosis of 50-69% stenosis. Normal visualized cervical portion of the left internal carotid artery. Normal origin of the left external carotid artery (ECA). VERTEBRAL ARTERIES: Normal bilateral vertebral arteries. CT/CTA Neck W/WO Contrast IMPRESSION: High-grade stenosis at the origin of the right internal carotid artery causes might calcific plaques. 50-69% stenosis at the origin of the left internal carotid artery. 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 Accompanied by: Self Is patient in pain?: No Allergies Sulfa (Sulfonamide Antibiotics) Allergy (Verified 06/01/21 12:55) Rash Medications metoprolol succinate 25 mg tablet,extended release 24 hr 25 mg PO DAILY 04/08/17 [History Confirmed 06/01/21] cholecalciferol (vitamin D3) 25 mcg (1,000 unit) capsule 1,000 unit PO DAILY 03/22/19 [History Confirmed 06/01/21] coenzyme Q10 100 mg capsule 100 mg PO DAILY 03/22/19 [History Confirmed 06/01/21] multivitamin 1 tab PO DAILY 03/28/19 [History Confirmed 06/01/21] aspirin 81 mg tablet,delayed release 81 mg PO DAILY #1 tab 05/08/19 [Rx Confirmed 06/01/21] atorvastatin 40 mg tablet 40 mg PO QHS #90 tab 06/29/20 [Rx Confirmed 06/01/21] clopidogrel 75 mg tablet 75 mg PO DAILY #90 tab 11/06/20 [Rx Confirmed 06/01/21] lisinopril 10 mg tablet 10 mg PO DAILY tab 05/28/21 [History Confirmed 06/01/21] meloxicam 15 mg tablet 15 mg PO DAILY tab 05/28/21 [History Confirmed 06/01/21] [facility] Medical History Abnormal stress test Arthritis Atherosclerotic heart disease of [place] coronary artery without angina pectoris Carotid stenosis, right Dyspnea on exertion Encounter for monitoring antiplatelet therapy Essential hypertension Fatigue history of thyroid biopsy (~06/2020) Mixed hyperlipidemia RACHID (obstructive sleep apnea) Presence of stent in coronary artery (~05/14/19) Secondary pulmonary hypertension Sleep apnea SOB (shortness of breath) Thyroid nodule Surgical History History of cataract surgery History of hip replacement History of knee replacement History of shoulder surgery Hx of heart artery stent Presence of coronary angioplasty implant and graft (~05/14/19) Family History Father Heart disease Grandfather Heart disease Grandmother CVA (cerebral vascular accident) Son Heart disease Myocardial infarction Mother Hypertension Heart disease Social History Smoking Status: Never smoker alcohol intake: never substance use type: does not use caffeine: Yes Type: coffee Number of servings: 1 what type of physical activity do you participate in: none HPI HPI HPI: CÉSAR PRESCOTT, is a 85 F who presents to the office today for surgical follow-up of her extracranial carotid artery occlusive disease. My most recent intervention with the patient was June 24, 2020 where I did a fine needle aspiration of the right thyroid nodule. This was consistent with benign follicular nodule colloid nodule. Her most recent carotid duplex exam is as follows. Previous duplex exam of May 25, 2020 demonstrated peak systolic velocity within the right internal carotid at 240 cm/s flow with an end-diastolic velocity of 49. The patient now tells me that she has had some episodes of dizziness. She stopped her metoprolol. She thinks it is related to the medication. She thinks her blood pressure now is running higher but she is not quite sure because she does not have batteries for her home blood pressure machine. She denies any speech loss. No acute weakness of arms or legs. The patient states that she does not have stairs at home. She is able to climb a flight of stairs but does get somewhat short of breath. She reminds me that she has had coronary stenting. She is on clopidogrel therapy. She remains active for age 85. She drives to her daughter once a day. Apparently her daughter is in a wheelchair. The patient provides some assist. May 27, 2021 Reason For Study: Carotid stenosis Rt. Velocities/BP Lt. Velocities/BP Prox CCA 50.1/5.1 cm/sec. Prox CCA 76/19.4 cm/sec. Mid CCA 41.2 cm/sec. Mid CCA 70.5/15.7 cm/sec. Dist CCA 44/10 cm/sec. Dist CCA 59.7/13 cm/sec. Prox ICA 254/53.7 cm/sec. Prox ICA 72/20.4 cm/sec. Mid ICA 167.3/19.7 cm/sec. Mid ICA 58.5/14.2 cm/sec. Dist ICA 82.5/18.9 cm/sec. Dist ICA 94.1/22.8 cm/sec. Rt. ICA/CCA = 5.77. Lt. ICA/CCA = 1.33. Prox ECA 165.5/17.5 cm/sec. Prox ECA 80.6/8.1 cm/sec. Rt. Vert. 41/9.7 cm/sec. Lt. Vert. 37.4/11 cm/sec. Right Extracranial There is homogeneous, smooth atherosclerotic plaque noted in the right common carotid artery. There is heterogeneous, irregular atherosclerotic plaque noted in the right internal carotid artery. There is heterogeneous, irregular atherosclerotic plaque noted in the right external carotid artery. Antegrade flow is noted in the right vertebral artery. Left Extracranial There is heterogeneous, irregular atherosclerotic plaque noted in the left common carotid artery. There is heterogeneous, irregular atherosclerotic plaque noted in the left internal carotid artery. There is heterogeneous, smooth atherosclerotic plaque noted in the left external carotid artery. Antegrade flow is noted in the left vertebral artery. Procedure Carotid Duplex 44486. This is a Carotid Duplex examination using B-mode, color flow and specral Doppler. Exam performed in department. VL/Carotid Duplex Ultrasound Interpretation Summary Extensive calcific plaque with shadowing at the right carotid bulb and proximal internal carotid artery Greater than 70% stenosis right internal carotid artery Less than 50% stenosis right external carotid artery Irregular calcific plaque at the proximal left internal carotid artery with less than 50% stenosis Less than 50% stenosis left external carotid artery Patent and antegrade vertebral arteries bilaterally Slight peak systolic velocity progression right internal carotid artery from the previous examination of May 25, 2020 Ordering Physician: Milad Hodgson Referring Physician: Angelita Roman M.D. Performed By: Echo Villarreal RVT and Student My previous notes from September 27, 2019 which was her most recent visit for carotid evaluation recants as follows. HPI: CÉSAR PRESCOTT, is a 84 F who presents to the office today for surgical consultation regarding asymptomatic extracranial carotid artery occlusive disease. The patient states that for almost 19 years she has known extracranial carotid artery occlusive disease. She had a screening exam at that time. She states that over the years she has had periodic carotid duplex imaging. Recently April 2019 she had a cardiac catheterization with stent placement. She is now on statin medication and blood pressure medicine and clopidogrel antiplatelet agent. The patient was referred by her primary care physician Dr. Angelita Roman for surgical consultation and a written copy of my surgical consult recommendations will be returned to her. She is also cared for by Dr. Milad Arzola and Dr. Magdiel Maher. Written copy to my surgical consult recommendations will return to them. Her most recent carotid duplex imaging is as follows. Assessment and Plan Assessment and Plan (1) Carotid stenosis, right: Status: Acute Plan - Dr. Milad Hodgson MD: At this point I do recommend further investigation regarding her right carotid stenosis. It is not clear to me whether her dizziness is related to medication changes or bradycardia or hypertension or carotid stenosis. She is living a independent high quality of life. I propose for her a CTA of the carotids. She will then return to the office to discuss results. She might indeed be a candidate for right carotid endarterectomy. In the meantime we will notify cardiology of her ongoing symptoms. Hopefully her cardiac status can be maximized and stabilized in an effort to try to allow for surgical intervention. I appreciate the ongoing opportunity of assisting with her surgical care. Copy: Dr Angelita Roman and TEO Yang M.D., F.A.C.S. ROS General General: Yes fatigue; No weight change, appetite, colon cancer, breast cancer or weakness HEENT HEENT: No difficulty swallowing, eye injury, eye surgery, swollen glands or hoarseness Endo Endocrine: No thyroid disease, diabetes mellitus, thyroid cancer, Hair loss, heat intolerance or cold intolerance Skin Skin: No rash or changing moles Musc Musculoskeletal: Yes arthritis; No back problems, rheumatoid arthritis, gout or joint pain Cardio Cardiovascular: Yes heart disease, high blood pressure and heart stent; No murmur, pacemaker, atrial fibrillation, heart attack, palpitations, shortness of breat with exertion or chest pain Psych Psychiatric: No depression, anxiety or hearing voices Resp Respiratory: Yes shortness of breath, Yes sleep apnea, No cough, No COPD, No asthma, No emphysema and No wheezing Gastro Gastrointestinal: No abdominal pain, No nausea or vomiting, No diarrhea, No constipation, No blood in stool, No acid reflux, No hemorrhoids, No ulcers, No gallbladder problem and No black,tarry stools Charles Hematologic: Yes blood thinners, No blood disorders, No bleeding, No anemia and No blood clots Neuro Neurologic: Yes numbness, Yes tingling and No weakness Exam Const General: cooperative, comfortable and no acute distress Nutritional Appearance: average body habitus Orientation: alert and awake HENTN Head: normal to inspection Eyes General: appearance normal, both eyes and all related structures Neck Neck: normal visual inspection Carotids: normal carotid upstroke Resp Effort & Inspection: normal respiratory effort Auscultation: clear to auscultation bilaterally Cardio Rate: regular rate Rhythm: regular rhythm GI Palpation: soft and no hepatosplenomegaly Musc Cervical Spine: normal cervical lordosis Neuro Cognition: normal cognition Extrem General: no calf tenderness Psych Thought Content: normal COVID (Procedure Consent) Procedure Criteria Procedure Criteria: Yes Elective The surgeon/proceduralist and patient have discussed in detail the risk of exposure to and/or potential harm posed by the COVID-19 virus with having a surgery/procedure at this time versus the risk of delaying the surgery/procedure. It is not possible to know either the risk of delaying the surgery or procedure or chance of getting an infection with perfect accuracy, but a joint decision was made between the patient and the surgeon/proceduralist to proceed at this time with the scheduled surgery/procedure as indicated on the consent form. Assessment and Plan Assessment and Plan (1) Carotid stenosis, right: Status: Acute Plan Details Additional Comments: High-grade right internal carotid artery stenosis confirmed on duplex ultrasound and CTA of the carotid. The patient has some nonspecific dizziness. It is difficult to determine some of her symptoms whether they are related to her carotid occlusive disease or other. Her primary complaint actually is fatigue. I have instructed her that treatment of the carotid will not improve generalized fatigue. In great detail today I discussed with her the technique, benefit, risk, alternatives of a right carotid endarterectomy with bovine patch angioplasty and arterial line monitoring. I compared and contrasted that to ongoing medical treatment. I additionally discussed briefly carotid artery stenting. Based upon her progression of disease I do believe that she is a candidate for right carotid endarterectomy. She is aware that there is no 0 risk pathway. When I cannot assure is whether it will make any change in her vague dizzy symptoms. She has had an opportunity to ask and have questions answered. We will have her hold her Plavix 2 days preoperatively. She will remain on her low-dose aspirin. She is aware that she will not be able to be discharged to home alone situation. She has had an opportunity to ask and have questions answered. We will schedule and proceed with her care. Copy: Dr Angelita Roman and TEO Yang M.D., F.A.C.S. I have re-examined the patient. There are no clinical changes since date of exam. Milad Hodgson M.D., F.A.C.S.
[2021-06-29] MEDS: Lactated Ringers 1,000 ML 100 ML IV ×2 (06:35→11:31)
--- NOTE | 2021-06-29 06:57 | OP.PCM_ITS ---
Problems Associated Problem List Diagnoses (1) Carotid stenosis, right: Report of Operation Date of Procedure: 06/29/21 Pre-Operative Diagnosis: Symptomatic critical stenosis right extracranial internal carotid artery Post-Operative Diagnosis: Same Surgery/Procedure Performed:: Left radial arterial line placement Right carotid endarterectomy with bovine patch angioplasty Description of Surgical Findings:: At the bedside timeout and informed consent was obtained. Ang test performed demonstrating adequate left ulnar flow. The left wrist was extended prepped with Betadine. Under ultrasound guidance 1% lidocaine was instilled as a local anesthetic. Total of 1 cc was used. A 20- gauge Angiocath was advanced under ultrasound guidance into the radial artery but the catheter could not be advanced. I then used a 20-gauge arrow kit Angiocath under ultrasound guidance and with Seldinger wire technique was able to advance the catheter. The catheter was secured to skin with 3-0 silk. OpSite dressing applied after pressure to be connected. Anais wrap applied. She tolerated the procedure well no apparent complication the hand was viable to completion a good waveform was obtained. The patient was subsequently taken to the operating room. She was placed supine on the table and underwent general endotracheal intubation anesthesia. Ancef 2 g were given intravenously preoperatively. The right neck was sterilely prepped and draped. An oblique incision was made along the anterior border of the right sternocleidomastoid. Sharp dissection carried down through the subcutaneous tissue. The sternocleidomastoid was reflected laterally. Sharp and blunt dissection was used to identify the common carotid carotid bulb and proximal internal and external carotids. The Dacron tape with renal tourniquet was placed on the internal carotid. Dacron tape Moore tie upon the common carotid Vesseloops placed around the external carotid Moore tie of 3-0 Vicryl on the superior thyroid. The patient received 7000 units of heparin. After adequate circulating time, and external carotid artery 11 blade was used to make an arteriotomy which was extended with Moore scissors. A highly stenotic densely calcified plaque was located at the carotid bulb proximal portion of the internal carotid. #10 USCI style shunt was placed cephalad than proximally. Then an endarterectomy was performed at the layer of the external elastic lamina. The plaque was sharply transected proximally it was feathered at the internal carotid and inversion endarterectomy was performed of the external carotid. Additional plaque and debris was carefully removed. The intima is still somewhat thick at the internal carotid so a couple tacking sutures of 7-0 Prolene were placed. Irrigation performed good smooth feathering. A 10 x 0.8 cm patch of bovine pericardium Vascu-Guard was applied. It was shaped to form and then a patch angioplasty performed with a running 6-0 Prolene. Prior to co mpletion the shunt was removed the vessel was irrigated the patch angioplasty completed initial flow was instilled from the external carotid common carotid from the internal carotid. There was no cerebral oximetry change throughout the entire procedure. The patient received an additional 500 units of heparin during the procedure and then at the completion procedure she received 30 mg of protamine's reversal. I did use Surgicel to further assist with hemostasis. There then a couple repair sutures of 7-0 Prolene placed. There was some slight tortuosity of the internal carotid so I placed a 6-0 Prolene to help with a good curvilinear position. The platysma was then approximated running 3-0 Vicryl the skin edges proximal and running septic letter 5-0 Vicryl. Periincisional anesthetized with 10 cc of 0.5% Marcaine. Steri-Strips Telfa tape dressings applied. Sponge and instrument and needle counts were reported the surgeon to be correct. Specimen plaque. Drains none. Blood loss 200 cc. She was taken to the recovery room in satisfactory addition without apparent complication Milad Hodgson M.D., F.A.C.S. Vascu-Guard: Reference [id number] PN #[id number] Lot number [id number] Surgeon: Milad Hodgson Type of Anesthesia: General and Local
--- NOTE | 2021-06-29 06:59 | PCM.DC ---
Documented by User: Dr. Milad Hodgson MD 06/29/21 07:00 Discharge Instructions Diet Discharge Diet: Light diet - advance as tolerated Activity Discharge Activity: May Not Drive (For 5 to 7 days), May Not Shower (For 3 days) and May Take a Tub Bath Weight Bearing Status: Full weight bearing Dressing / Incision Call your doctor if your incision/area has: Continuous Slow Oozing, Sudden Increased Bleeding and Increased Pain/ Swelling Call your doctor if you observe: Fever of 101 or Higher Suture Line Care: Avoid Pulling/Pushing Change Dressing in: 1 day (You may apply a dry gauze cover dressing to your incision as needed to protect from clothing irritation. Change as needed) Remove Dressing in: 1 week (Leave your Steri-Strips in place for 1 week then you may remove) Follow Up Care Please Follow Up With: Milad Hodgson MD When: Approximately 10 days. Please call [phone] to arrange for an appointment Test Results: Test results from this visit will be discussed in further detail at your follow-up appointment, if applicable. Discharge Plan Admission Admit Date/Time: 06/29/21 05:45 Primary Reason for Your Visit: Symptomatic right carotid stenosis Attending Provider: Milad Hodgson Primary Care Provider: Angelita Roman Instructions Additional Instructions / Restrictions: Remove Szymanski catheter on Monday07/02/21 at home. If unable to remove at home, call office immediately for patient to have removed in the office. Flomax was also provided. Please take 1 tablet nightly until prescription is completed. Recommend follow-up on Monday or Monday with primary care physician to address blood pressure medications. If have blood pressure machine at home, I would recommend taking blood pressure daily. If blood pressure starts to increase, please call our office or PCP's office for further recommendations to start blood pressure medications. Discharge Orders/Prescriptions Prescriptions: New tamsulosin [Flomax] 0.4 mg capsule 0.4 mg PO DAILY Qty: 30 RF: 0 Continued multivitamin tablet 1 tab PO DAILY RF: 0 coenzyme Q10 [Co Q-10] 100 mg capsule 100 mg PO DAILY RF: 0 cholecalciferol (vitamin D3) 1,000 unit capsule 1,000 unit capsule 1,000 unit PO DAILY RF: 0 metoprolol succinate 25 MG tablet 25 mg PO DAILY RF: 0 Hold Instructions: bradycardia lisinopril-hydrochlorothiazide 10-12.5 mg Tablet 1 tab PO DAILY RF: 0 atorvastatin 40 mg tablet 40 mg PO QHS RF: 0 clopidogrel [Plavix] 75 mg tablet 75 mg PO DAILY RF: 0 aspirin 81 mg tablet,delayed release (DR/EC) 81 mg PO DAILY RF: 0 Referrals / Follow Up: Angelita Roman MD [Primary Care Provider] - Disposition Disposition (needs filled in before D/C Order can be placed): Home, Self Care Documented by User: Heather GUARDADO PA-C 06/30/21 13:42 Discharge Plan Admission Admit Date/Time: 06/29/21 05:45 Primary Reason for Your Visit: Symptomatic right carotid stenosis Attending Provider: Milad Hodgson Primary Care Provider: Angelita Roman Instructions Additional Instructions / Restrictions: Remove Szymanski catheter on Monday07/02/21 at home. If unable to remove at home, call office immediately for patient to have removed in the office. Flomax was also provided. Please take 1 tablet nightly until prescription is completed. Recommend follow-up on Monday or Monday with primary care physician to address blood pressure medications. If have blood pressure machine at home, I would recommend taking blood pressure daily. If blood pressure starts to increase, please call our office or PCP's office for further recommendations to start blood pressure medications. Discharge Orders/Prescriptions Prescriptions: New tamsulosin [Flomax] 0.4 mg capsule 0.4 mg PO DAILY Qty: 30 RF: 0 Continued multivitamin tablet 1 tab PO DAILY RF: 0 coenzyme Q10 [Co Q-10] 100 mg capsule 100 mg PO DAILY RF: 0 cholecalciferol (vitamin D3) 1,000 unit capsule 1,000 unit capsule 1,000 unit PO DAILY RF: 0 metoprolol succinate 25 MG tablet 25 mg PO DAILY RF: 0 Hold Instructions: bradycardia lisinopril-hydrochlorothiazide 10-12.5 mg Tablet 1 tab PO DAILY RF: 0 atorvastatin 40 mg tablet 40 mg PO QHS RF: 0 clopidogrel [Plavix] 75 mg tablet 75 mg PO DAILY RF: 0 aspirin 81 mg tablet,delayed release (DR/EC) 81 mg PO DAILY RF: 0 Referrals / Follow Up: Angelita Roman MD [Primary Care Provider] - Disposition Disposition (needs filled in before D/C Order can be placed): Home, Self Care
[2021-06-29] MEDS: Cefazolin 2 GM in 0.9% Normal Saline 100 ML IV (07:40)
--- NOTE | 2021-06-29 08:00 | PLAQ_PTH ---
PATIENT: CÉSAR PRESCOTT LOC: PCU U#:[id number] AGE/SX: 85/F ROOM: [facility] RE06/29/[address]: Dr. Milad Hodgson MD : 1935 BED: 1 DIS: 06/30/2021 SPEC #: [id number] RECD: 06/29/21 11:47 STATUS: IGNACIA BARROW #: [id number] LANRE: 06/29/21 08:[address]: Milad Hodgson DEPT: SURGICAL PATHOLOGY RECD BY: Shi Malone ENTERED: 06/29/21 13:15 SP TYPE: PLAQUE OTHR DR: Dr. Angelita Roman MD Tissues: PLAQUE Procedures: Decalcification bone/plaque Surgery Specimen Level III HEADER OPERATION: Carotid endarterectomy with patchy angioplasty PRE-OP DIAGNOSIS: Carotid stenosis TISSUE SUBMITTED: Carotid plaque MICROSCOPIC DIAGNOSIS Carotid artery plaque, endarterectomy: Calcified atheromatous plaque consistent with severe stenosis. AM:lisa 07/02/2021 GROSS DESCRIPTION Received in fixative is one container labeled with the patient's name and designated carotid plaque. The specimen consists of a Y-shaped fragment of yellow-acosta calcified tissue measuring 2.6 x 1.2 x 0.6 cm. The specimen is sectioned and totally submitted in one cassette after decalcification. / AM:lisa 06/29/21 TC:5 CPT: 42316, 45769
[2021-06-29] MEDS: Heparin Injection (Vial) 5,000 UNIT/ML VIAL 5000 UNIT (10:08)
[2021-06-29] MEDS: Bupivacaine Mpf 0.5% 30 ML VIAL (10:19)
[2021-06-29 11:41] LABS: ACT Activated Clotting Time 120 sec (74-137)
[2021-06-29 11:42] LABS: ACT Activated Clotting Time 224 sec (74-137)
[2021-06-29] MEDS: Cefazolin 1 GM/50 ML BAG IV ×2 (16:32→23:44)
[2021-06-29] MEDS: Aspirin E.C. 81 MG Tablet PO (16:32)
[2021-06-29] MEDS: 0.9% Normal Saline 1,000 ML 30 ML IV (16:36)
[2021-06-29] MEDS: Atorvastatin Calcium 40 MG Tablet PO (21:45)
[2021-06-30] VITALS (8 sets, daily range): BP systolic 92–105; BP diastolic 40–73; PULSE 59–68; RESP 16–18; TEMP 36.4–36.8; O2SAT 94–100
--- NOTE | 2021-06-30 06:04 | PCM.PN.SRG ---
Subjective Subjective Patient is feeling well. No neurologic compromise. Objective Data Objective Data Vital Signs: Vital Signs Temp Pulse Resp BP Pulse Ox 97.5 F L 65 16 93/42 L 97 06/30/21 03:40 06/30/21 03:40 06/30/21 03:40 06/30/21 03:40 06/30/21 03:40 Oxygen Flow Rate (L/min) 2 Oxygen Delivery Method Room Air Weight: 161 lb 9.581 oz Body Mass Index (BMI) 30.5 Intake & Output: Intake and Output for Last 24 Hours 06/28/21 06/29/21 06/30/21 23:59 23:59 23:59 Intake Total 2685 / 2925 290 / 290 Output Total 2050 / 2750 700 / 700 Balance 635 / 175 -410 / -410 Lab / Micro Data Result Diagrams: 06/24/21 12:18 06/24/21 12:18 Labs: Laboratory Results - last 24 hr 06/29/21 07:05: Activated Clotting Time 120 06/29/21 08:58: Activated Clotting Time 224 H Physical Exam Const Constitutional Narrative: Right neck is clean dry supple Extremity Extremity Narrative: Neurologic status is intact Assessment & Plan Assessment/Plan (1) Carotid stenosis, right: PLAN: Patient currently has her antihypertensives on hold. She states that she has had urinary retention problems in the past that routinely at home she has urinary retention. I will provide Flomax. I suspect we will need to discharge with a Szymanski catheter in place. I anticipate discharge later today. We will observe after the Flomax whether she is able to void spontaneously and has a low residual volume. We will also observe how her blood pressure runs so that we can provide her instructions as to when to possibly resume her medications. Fortunately she does have the ability to check her blood pressure at home. Dr. Angelita Roman is her primary care physician and will be assisting with further hypertension advice. Milad Hodgson M.D., F.A.C.S.
[2021-06-30] MEDS: Tamsulosin HCl 0.4 MG Capsule PO (06:13)
[2021-06-30] MEDS: Cholecalciferol (VIT D3) 25 MCG TABLET (1,000 UNITS) PO (08:44)
[2021-06-30] MEDS: Aspirin E.C. 81 MG Tablet PO (08:44)
--- NOTE | 2021-06-30 10:20 | CASEMGMT ---
RN CM CURRICULUM SPECIALIST CM to room to meet with patient for initial transition planning/care coordination assessment. RN NIKKI introduced self and role at [facility].? Pt voices understanding and consents to assessment at this time.? Pt resting in bed in no distress at this time.?Daughter, Samanta, at bedside. Pt is A/O at this time and answers all questions appropriately.?? Care providers, pharmacy, and demographics verified/updated at this time. PCP: Dr Senior Specialists: Dr Hodgson-surgeon, Dr Maher-cardiology, Dr Arzola--pulmonology Preferred Pharmacy: [facility] Retail pharmacy. Script for Flomax has been e-scribed to [employer]. Pt wishes to get it from [facility] pharmacy today prior to discharge. Call placed to Joselo @ [facility] pharmacy and he will call to have it transferred. Insurance: [facility], [employer] Prescription Benefit:? Yes Living Will/HPOA:? Has both LW and HPOA. Pt thinks her dtr, Estela, is POA LNOK: DtrSamanta, Dtr, Zayda. Living Arrangements: Lives alone in [facility]. One small step to entrance thru front, ramp entrance in back. Independent w/ADL's and IADL's prior to surgery. Pt drives to her dtr's home (Zayda) daily who is w/c bound and assists her w/dinner and various other things around the home. DtrSamanta, who is present, plans to stay w/pt for as long as needed. Transportation: Pt states drives self and states no transportation concerns at this time.? DME: ?Pt has a BIPAP. She states she also has a cane and walker available, but does not use either. ?Pt states no need for further DME at this time.? HHC/SNF: Hx of going to SNF after hip surgery when she was in [place]. No hx of HHC. Declines need for HHC at this time. Pt wishes to return home and states has no concerns with going home at time of discharge.? CM to follow for any discharge planning/needs.? Pt/dtr voice no concerns/needs at this time.? Advised them to ask for CM if any questions/concerns/needs arise.? They voice understanding. PLAN: ?Home w/family support and discharge plans in place. DGiauque BSN RN CM
--- NOTE | 2021-06-30 11:04 | NURSING ---
Straight cathed pt per order/policy for bladder scan 999. Got 700ml clear yellow urine. Edwar Sosa RN made aware. Pt tolerated without difficulty.
--- NOTE | 2021-06-30 14:58 | PHA.DC.MC ---
Pharmacy Service has performed discharge medication reconciliation and counseling for this patient. 1. TAMSULOSIN 0.4MG PO DINNER The patient's discharge medication list was reviewed for discrepancies and discrepancies were resolved. Home Medications metoprolol succinate 25 mg tablet,extended release 24 hr 25 mg PO DAILY 04/08/17 cholecalciferol (vitamin D3) 25 mcg (1,000 unit) capsule 1,000 unit PO DAILY 03/22/19 coenzyme Q10 100 mg capsule 100 mg PO DAILY 03/22/19 multivitamin 1 tab PO DAILY 03/28/19 aspirin 81 mg PO DAILY 06/22/21 atorvastatin 40 mg PO QHS 06/22/21 clopidogrel [Plavix] 75 mg PO DAILY 06/22/21 lisinopril-hydrochlorothiazide 1 tab PO DAILY 06/22/21 tamsulosin [Flomax] 0.4 mg PO DAILY #30 cap 06/30/21 The patient was counseled on the following discharge medications and changes in medications for homegoing were reviewed. The Reason for Use, instructions for use, and potential side effects were reviewed for all new medications. The patient's questions regarding all of their medications were answered. The patient was able to verbally demonstrate an understanding of their discharge medications.
== END 2021-06-30 14:55 | disposition home or self-care (01) | DRG 39 ==
LOC: ACINP 05:46 → PCU 15:16
PROVIDERS: Admitting Provider Surgery; PCP Family Medicine; Referring Provider Surgery; Visit Provider Surgery
PROC: 03HY32Z Insertion of Monitoring Device into Upper Artery, Percutaneous Approach (ICD-10-PCS; CPT 35301; principal; 2021-06-29 07:40)
DX: I65.23 Occlusion and stenosis of bilateral carotid arteries (principal); R33.9 Retention of urine, unspecified; I10 Essential (primary) hypertension; I25.10 Atherosclerotic heart disease of native coronary artery without angina pectoris; E78.2 Mixed hyperlipidemia; G47.33 Obstructive sleep apnea (adult) (pediatric); Z95.5 Presence of coronary angioplasty implant and graft; Z79.02 Long term (current) use of antithrombotics/antiplatelets
CPT/HCPCS: 36415; 80048; 85027; 85347; 88304; 88311; 93005; 99251; J7030; J7040; J7120; G0463; J2405

== ENCOUNTER → 2021-07-27 08:56 | Outpatient (CLI) | payer MEDICARE, OTHER, SELFPAY ==
--- NOTE | 2021-07-27 08:57 | CDUL_ITS ---
Reason For Study: Aquino stents Rt. Velocities/BP Prox CCA 55.2/8.2 cm/sec. Mid CCA 60.7/10.4 cm/sec. Dist CCA 68.2/9.5 cm/sec. Prox ICA 44.7/13.5 cm/sec. Mid ICA 112/27.9 cm/sec. Dist ICA 64.5/18.8 cm/sec. Rt. ICA/CCA = 1.84. Prox ECA 194.9/13.9 cm/sec. Rt. Vert. 35.5/9.1 cm/sec. Right Extracranial There is homogeneous, smooth atherosclerotic plaque noted in the right common carotid artery. There is intimal thickening but no significant atherosclerotic plaque noted in the right internal carotid artery. There is heterogeneous, irregular atherosclerotic plaque noted in the right external carotid artery. Antegrade flow is noted in the right vertebral artery. Procedure Carotid Duplex 15602. This is a Carotid Duplex examination using B-mode, color flow and specral Doppler. Exam performed in department. VL/Carotid Unilateral Interpretation Summary Widely patent postoperative right carotid bulb and proximal internal carotid ar patsy with less than 50% stenosis Less than 50% stenosis right external carotid artery Patent and antegrade right vertebral Marked improvement in the right carotid from the previous examination of May Ordering Physician: Heather Pa Referring Physician: Angelita Roman M.D. Performed By: Echo Villarreal RVT
== END ==
PROVIDERS: PCP Family Medicine; Referring Provider Surgery; Visit Provider Surgery
DX: I65.21 Occlusion and stenosis of right carotid artery (principal)
CPT/HCPCS: 93882